=== PATIENT | female | born 1980 | race Hispanic/Latino ===

== ENCOUNTER 2016-09-21 17:44 | Emergency (ER) | payer OTHER ==
[~2016-09-21] VITALS: Ht 144.8 cm; Wt 68.0 kg
[~2016-09-21 17:44] MED LIST: ACYCLOVIR800 M1 PO; ANTIVERT 25MG #1 PAC PO; AURALGAN 14 ML14 ML AD; BENTYL 10 MG CA10 MG PO; CIPRO 500MG TA500 MG PO; CYCLOBENZAPRINE10 M1 PO; CYCLOBENZAPRINE10 M3 PR; EXCEDRIN MIGRAI1 TAB PO; FIORICET 50-301 EACH PO; MAXALT10 M1 PO; MEDROL DOSEPAK1 PAC PO; MEDROL4 M2 PO; MOTRIN800 MG PO; MULTI-DAY VITA1 EACH PO; OXYCODONE5 MG PO; PERCOCET 325 MG1 TA2 PO; PHENAZOPYRIDIN100 MG PO; PROMETHAZINE HC25 M3 PO; PYRIDIUM100 MG PO; REGLAN10 M1 PO; SOMA 350MG TAB350 MG PO; TIZANIDINE HCL2 M1 PO; TOPIRAMATE25 MG PO; TOPIRAMATE50 MG PO; VIMOVO 20 MG PO; ZITHROMAX Z-PA250 M1 PO; ZOFRAN 4 MG TABL4 MG PO; ZOFRAN ODT4 M1 PO; ZOFRAN ODT4 MG PO; ZOFRAN ODT4 MG SL; ZOFRAN4 M1 PO; ZOFRAN4 M2 PO
[2016-09-21 17:57] VITALS: BP 133/93
--- NOTE | 2016-09-21 18:28 | ED HEADACHE COMPLAINT ---
History of Present Illness General Chief Complaint: Headache Stated Complaint: WALL Source: patient Exam Limitations: no limitations Vital Signs & Intake/Output Vital Signs & Intake/Output Vital Signs Date Time Temp Pulse Resp B/P Pulse O2 O2 Flow FiO2 Ox Delivery Rate 09/21 1757 97.5 97 18 133/93 97 Room Air Allergies Coded Allergies: ketorolac (Mild, TOOTH PAIN 01/09/16) codeine (INSOMNIA, GI, HIVES, HEART ACCELERATES 01/09/16) ibuprofen (GI, HIVES, VOMIT 01/09/16) Triage Note: PT HERE FOR MIGRAINE AND RIGHT EAR PAIN. PT STATES THIS STARTED AT 0600. PT STATES SHE TOOK HER EXCEDRIN BUT IT DIDN'T WORK. Triage Nurses Notes Reviewed? yes Onset: Abrupt Duration: day(s): (1), constant, continues in ED Timing: recent history Quality/Severity: moderate, severe No Modifying Factors: none : No Patient currently breastfeeds: No HPI: 36-year-old female comes into emergency room for further evaluation of migraine headache that has been going on since this morning. Sharp. Throbbing. Continuous. Right-sided. Feels like previous migraines. Denies any vomiting but some associated nausea. Patient has been seen here many times for headaches in the past. Patient has an appointment with neurologist in October. (LESTER NEWSOME) Reconcile Medications Acetaminophen/Aspirin/Caffei (Excedrin Migraine 250 MG-250 MG-65 MG) 1 TAB TAB 2 TAB PO PRN MIGRAINES (Reported) Metoclopramide HCl (Reglan) 10 MG TABLET 1 TAB PO 4 TIMES/DAY nausea 30 minutes before meals and bedtime Multivitamin (Multi-Day Vitamins) 1 EACH TABLET 1 TAB PO DAILY SUPPLEMENT ( Reported) Oxycodone Hydrochloride (Oxycodone) 5 MG TAB 1 TAB PO TID PRN PAIN (Reported) (CASS ALEXANDER,YASMIN) Past History Travel History Traveled to [place] past 21 day No Medical History Any Pertinent Medical History? 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 No (LESTER NEWSOME) Review of Systems Review of Systems Constitutional: Reports: no symptoms. Eyes: Reports: no symptoms. Ears, Nose, Throat, Mouth: Reports: no symptoms. Respiratory: Reports: no symptoms. Cardiovascular: Reports: no symptoms. Gastrointestinal/Abdominal: Reports: no symptoms. Genitourinary: Reports: no symptoms. Musculoskeletal: Reports: no symptoms. Skin: Reports: no symptoms. Neurological/Psychological: Reports: see HPI. Hematologic/Endocrine: Reports: no symptoms. Endocrine: Reports: no symptoms. Immunologic/Allergic: Reports: no symptoms. All Other Systems: Reviewed and Negative (LESTER NEWSOME) Physical Exam Physical Exam General Appearance: well developed/nourished, no apparent distress, alert, awake Head: atraumatic, normal appearance Eyes: Bilateral: normal appearance, PERRL, EOMI. Ears, Nose, Throat: normal pharynx, normal ENT inspection, hearing grossly normal Neck: normal inspection, supple, full range of motion Respiratory: normal breath sounds, chest non-tender, no respiratory distress Cardiovascular: regular rate/rhythm Back: normal inspection Extremities: normal inspection, normal range of motion Psychiatric: awake, alert, oriented x 3 Cranial Nerves: normal hearing, normal speech, PERRL Coordination/Gait: normal gait Motor/Sensory: no motor/sensory deficits Skin: intact, normal color Core Measures Severe Sepsis Present: No Septic Shock Present: No (LESTER NEWSOME) Progress Differential Diagnosis: carotid dissection, cav sinus thromb, cluster WALL, encephalitis, IC mass/tumor, intracranial Hem., meningitis, migraine WALL, musculoskeletal pain, sinusitis, SSS thrombosis, subarach. Hem., tension WALL, temporal arteritis, TMJ syndrome, viral cephalgia Plan of Care: Current Medications Sig/Wei Start time Last Medication Dose Stop Time Status Admin Hydromorphone HCl 1 MG ONCE ONE 09/21 1844 UNVr (Dilaudid) 09/21 1845 Metoclopramide HCl 10 MG ONCE ONE 09/21 1844 UNVr (Reglan) 09/21 1845 Departure Departure Disposition: HOME OR SELF CARE Condition: Stable Clinical Impression Primary Impression: Migraine headache Referrals: David CAVAZOS MD (PCP/Family) Additional Instructions: Take Reglan as prescribed. Follow-up with neurologist as ready scheduled. Return if any other concerns worsening symptoms. Please go over all results of today's visit with your primary care doctor. Contact your primary care doctor to let them know you were here in the emergency room. There may be nonspecific findings which may not be related to your visit today here in the emergency room but may require further evaluation and chronic monitoring by your primary care doctor. If you had a laceration today the chance of foreign body always remains. You should follow-up with your primary care doctor for recheck in 3-5 days for a wound check. If you had an x-ray done there is a chance that a fracture could have been missed on initial read and you should follow-up with your primary care doctor for repeat x-rays if symptoms persist. If your blood pressure was elevated here in the emergency room please have rechecked by her primary care doctor within the next 48 hours by your primary care doctor. If you were prescribed a narcotic here in the emergency room or any type of controlled substances you're not allowed to drive while taking this medication or operate any type of heavy machinery. Narcotics can make you feel lightheaded dizziness nausea and can cause constipation. You may need to picker / packer a stool softener. Thank you for choosing [facility] emergency room. Please return to the emergency room immediately if you have any other concerns worsening of symptoms. Departure Forms: Customer Survey General Discharge Information Prescriptions: Current Visit Scripts Metoclopramide HCl (Reglan) 1 TAB PO 4 TIMES/DAY #15 TAB 30 minutes before meals and bedtime Comments 09/21/2016 6:57:52 PM Patient told that she cannot get IV narcotics. Patient will get one-time dose of pain medication. Headache is consistent with previous headaches. No suspicion for subarachnoid hemorrhage. Afebrile. Nontoxic-appearing. No nuchal rigidity. No suspicion for meningitis. (LESTER NEWSOME) PA/PHOTOGRAPHIC SPECIALIST Co-Sign Statement Statement: ED Attending supervision documentation- [] I saw and evaluated the patient. I have also reviewed all the pertinent lab results and diagnostic results. I agree with the findings and the plan of care as documented in the PA's/PHOTOGRAPHIC SPECIALIST's documentation. x I have reviewed the ED Record and agree with the PA's/PHOTOGRAPHIC SPECIALIST's documentation. [] Additions or exceptions (if any) to the PAs/PHOTOGRAPHIC SPECIALIST's note and plan are summarized below: [] (CASS ALEXANDER,YASMIN)
[2016-09-21] MEDS ORDERED: REGLAN10 M1 PO (18:42)
== END 2016-09-21 18:53 ==
LOC: ERH 17:44
DX: G43.909 Migraine, unspecified, not intractable, without status migrainosus (principal)
CPT/HCPCS: 96372

== ENCOUNTER 2016-11-20 15:12 | Emergency (ER) | payer OTHER ==
[~2016-11-20] VITALS: Ht 144.8 cm; Wt 63.5 kg
--- NOTE | 2016-11-20 15:58 | ED GENERAL ADULT ---
History of Present Illness General Chief Complaint: General Adult Stated Complaint: PT HAS A MIRGRAINE,EAR ACHE Source: patient Exam Limitations: no limitations Vital Signs & Intake/Output Vital Signs & Intake/Output Vital Signs Date Time Temp Pulse Resp B/P Pulse O2 O2 Flow FiO2 Ox Delivery Rate 11/20 1729 96.5 78 18 159/93 99 Room Air 11/20 1542 100 Room Air 11/20 1520 96.9 83 16 148/106 97 Room Air Allergies Coded Allergies: ketorolac (Mild, TOOTH PAIN 11/20/16) codeine (INSOMNIA, GI, HIVES, HEART ACCELERATES 11/20/16) ibuprofen (GI, HIVES, VOMIT 11/20/16) Triage Note: PT STATES SHE HAS AN EAR ACHE RIGHT SIDE AND A MIGRAINE. PT REPORTS THIS ALL STARTED AT 0300. Triage Nurses Notes Reviewed? yes Onset: Gradual Duration: day(s): (1) Timing: recent history Injury Environment: home Severity: moderate Severity Numbers: 8 Modifying Factors: Worsens With: other (LIGHTS). : No Patient currently breastfeeds: No HPI: Patient is a 36-year-old female who's had history of chronic migraines associated with right ear pain presenting to the emergency department with chief complaint of flareup of this pain. She's been dealing with this for "a while". Has been taking Tylenol at home without relief. She was seen here recently for the same symptoms and was given nausea medication. She reports that she cannot keep it down. She has an appointment with a specialist but has not seen them yet. Positive nausea but no vomiting. Denies abdominal pain. No visual changes. Positive light sensitivity. No fevers or chills. Feels typical of her migraine. Headache started gradually (COCO MONROY) Reconcile Medications Multivitamin (Multi-Day Vitamins) 1 EACH TABLET 1 TAB PO DAILY SUPPLEMENT ( Reported) Prochlorperazine Maleate (Compazine) 10 MG TABLET 1 TAB PO Q8HR PRN NAUSEA Propranolol HCl (Propranolol HCl ER) 160 MG CAP.SA.24H 1 CAP PO DAILY MIGRAINES (Reported) (SUSANNAH LANDEROS DO) Past History Travel History Traveled to [place] past 21 day No Medical History Any Pertinent Medical History? 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 No (COCO MONROY) Review of Systems Review of Systems Constitutional: Reports: no symptoms. Comments Review of systems: See HPI, All other systems negative. Constitutional, no chills fever or weight loss HEENT: No visual changes no sore throat no congestion Cardiovascular: No chest pain ,palpitation , orthopnea or ankle swelling Skin, no jaundice no rashes Respiratory: No dyspnea cough sputum or hemoptysis GI: no vomiting : No dysuria No hematuria Muscle skeletal: no back pain, no neck pain, Neurologic: No numbness no confusion Psych: No stress anxiety or depression,. Heme/endocrine: No bruising no bleeding no polyuria or polydipsia Immunology: No splenectomy or history of AIDS (COCO MONROY) Physical Exam Physical Exam General Appearance: well developed/nourished, no apparent distress, alert, awake , WEARING SUNGLASSES Comments: Well-developed well-nourished person in no acute distress, wearing sunglasses HEENT: Normal EENT exam, extraocular motion intact, no nystagmus. Pupils equally round and reactive to light and accommodation. Nose is atraumatic. External auditory canal and Tympanic membranes clear. Pharynx normal. No swelling or edema. Tender to palpation over the right parietal bone. Neck: Supple, no lymphadenopathy, normal range of motion without pain or tenderness. No meningeal signs. Back: Nontender Cardiovascular: Regular rate and rhythms no murmurs rubs or gallops, normal JVP Respiratory: Chest nontender. No respiratory distress.breath sounds clear to auscultation bilaterally Extremity: No edema Neuro: Alert oriented x3, motor sensory normal, cranial nerves II through XII grossly intact. Skin: No appreciable rash on exposed skin, skin is warm and dry. Psych: Mood and affect is normal, memory and judgment is normal. Core Measures ACS in differential dx? No CVA/TIA Diagnosis: No Severe Sepsis Present: No Septic Shock Present: No (COCO MONROY) Progress Differential Diagnoses I considered the following diagnoses in my evaluation of the patient: Migraine headache, otitis media, otitis externa, sinusitis, medication seeking Plan of Care: Current Medications Sig/Wei Start time Last Medication Dose Stop Time Status Admin Hydromorphone HCl 2 MG ONCE ONE 11/20 1744 UNVr (Dilaudid) 11/20 1745 Metoclopramide HCl 10 MG ONCE ONE 11/20 1744 UNVr (Reglan) 11/20 1745 Patient medicated with ODT Zofran, by mouth oxycodone for symptoms. We do not treat chronic issues with IV or IM medications in this emergency department. Patient tolerating by mouth without vomiting. (COCO MONROY) Initial ED EKG: none Comments: Patient given by mouth ODT Zofran and oxycodone initially on arrival. And reevaluation patient reporting no improvement. Patient then given oral Reglan and oral Dilaudid. Patient reporting that the only thing that helps her is IM Dilaudid with Benadryl. Physics line to this patient that we cannot give IM or IV narcotic medications to help with chronic pain. Patient reporting that she would like to be discharged home, requesting refill for her antinausea medication. Patient educated on increasing fluids and following up specials. Patient nontoxic. VitalS stable. (COCO MONROY) Departure Departure Time of Disposition: 1810 Disposition: HOME OR SELF CARE Condition: Stable Clinical Impression Primary Impression: Migraine Qualifiers: Migraine type: unspecified Status migrainosus presence: without status migrainosus Intractability: not intractable Qualified Code: G43.909 - Migraine, unspecified, not intractable, without status migrainosus Secondary Impressions: Otalgia Qualifiers: Laterality: right Qualified Code: H92.01 - Otalgia, right ear Referrals: MACY ALEXANDER,MBrenna ALLEN (PCP/Family) Additional Instructions: Follow-up with your primary care physician as well as with YOUR specialist. Take Compazine as prescribed for nausea. Increase fluids. Return for worsening symptoms or concerns. Departure Forms: Customer Survey General Discharge Information Prescriptions: Current Visit Scripts Prochlorperazine Maleate (Compazine) 1 TAB PO Q8HR PRN NAUSEA #10 TAB (COCO MONROY) PA/SCOOP MACHINE OPERATOR Co-Sign Statement Statement: ED Attending supervision documentation- [] I saw and evaluated the patient. I have also reviewed all the pertinent lab results and diagnostic results. I agree with the findings and the plan of care as documented in the PA's/SCOOP MACHINE OPERATOR's documentation. [x] I have reviewed the ED Record and agree with the PA's/SCOOP MACHINE OPERATOR's documentation. [] Additions or exceptions (if any) to the PAs/SCOOP MACHINE OPERATOR's note and plan are summarized below: [] (SUSANNAH LANDEROS DO) Critical Care Note Critical Care Note Critical Care Time: non-applicable (COCO MONROY)
[2016-11-20] MEDS ORDERED: PROPRANOLOL HC160 M1 PO (16:47)
[2016-11-20 17:29] VITALS: BP 159/93
[2016-11-20] MEDS ORDERED: COMPAZINE10 M1 PO (18:12)
== END 2016-11-20 18:44 ==
LOC: ERH 15:12
DX: G43.909 Migraine, unspecified, not intractable, without status migrainosus (principal); H92.01 Otalgia, right ear
CPT/HCPCS: J3101

== ENCOUNTER 2017-11-17 17:17 | Emergency (ER) | payer OTHER ==
[~2017-11-17] VITALS: Ht 144.8 cm; Wt 74.4 kg
[~2017-11-17 17:17] MED LIST changes: +COMPAZINE10 M1 PO; +DIFLUCAN150 M1 PO; +ESGIC 50-325-41 EACH PO; +PERCOCET 5-3251 EACH PO; +PROPRANOLOL HC160 M1 PO; +VITAMIN D250000 UNIT PO
[2017-11-17 18:32] LABS: ABSOLUTE BASOPHIL COUNT 0 /CUMM (0.0-0.2); ABSOLUTE EOSINOPHIL COUNT 0.1 /CUMM (0.0-0.7); ABSOLUTE GRANULOCYTE CT 5.4 /CUMM (1.4-6.5); ABSOLUTE LYMPH COUNT 3.2 /CUMM (1.2-3.4); ABSOLUTE MONOCYTE COUNT 0.4 /CUMM (0.10-0.60); BASOPHIL % 0.4 % (0.0-2.0); EOSINOPHIL % 1.3 % (0-5); GRANULOCYTE % 58.8 % (42.2-75.2); HEMATOCRIT 40.8 % (37-47); MEAN CORPUSCULAR HGB 30.2 PG (27.0-31.0); MEAN CORPUSCULAR HGB CONC 33.2 G/DL (33.0-37.0); PLATELET COUNT 366 /CUMM (130-400); RBC DISTRIBUTION WIDTH 12.3 % (11.5-14.5); RED BLOOD CELL CT 4.48 /CUMM (4.20-5.40); WHITE BLOOD CELL COUNT 9.2 /CUMM (4.8-10.8)
--- NOTE | 2017-11-17 19:38 | ED INFLUENZA/URI COMPLAINT ---
History of Present Illness General Chief Complaint: General Adult Stated Complaint: BODY ACHES AND SWOLLEN LYMPH NODES IN GROIN PER PT Source: patient Exam Limitations: no limitations Vital Signs & Intake/Output Vital Signs & Intake/Output Vital Signs Date Time Temp Pulse Resp B/P B/P Pulse O2 O2 Flow FiO2 Mean Ox Delivery Rate 11/17 1722 97.7 106 18 158/95 95 Room Air Allergies Coded Allergies: ketorolac (Mild, TOOTH PAIN 11/20/16) codeine (INSOMNIA, GI, HIVES, HEART ACCELERATES 11/20/16) ibuprofen (GI, HIVES, VOMIT 11/20/16) Reconcile Medications Butalb/Acetaminophen/Caffeine (Esgic 50-325-40 MG Tablet) 50 MG-325 MG-40 MG TABLET 1 TAB PO TID HEADACHES Ergocalciferol (Vitamin D2) (Vitamin D2) 50,000 UNIT CAPSULE 1 CAP PO QW VITAMIN SUPPORT (Reported) Fluconazole (Diflucan) 150 MG TABLET 1 TAB PO ONCE YEAST INFECTION Triage Note: PT COMPLAINS OF FLU LIKE SYMPTOMS SINCE THURSDAY JOINT PAIN, SWOLLEN LYMP NODES STATES THAT SHE IS BEING TREATED FOR EAR INFECTIONS AT THIS TIME Triage Nurses Notes Reviewed? yes : No Patient currently breastfeeds: No HPI: Patient presents for evaluation of diffuse body aches, left groin pain, fever, nonproductive cough, nasal congestion, nausea without vomiting, diarrhea ( nonbloody) after being evaluated by her primary care physician on who initiated amoxicillin therapy for in ear infection. Patient denies any associated rashes, dyspnea, recent travel, ill contacts or vomiting. Patient symptoms are described as more or less constant, fluctuating in intensity and nothing seems to improve symptoms including Tylenol the amoxicillin and a nasal decongestant spray. Patient feels that her body aches are severe and interfering with her ability to perform usual activities. Past History Travel History Traveled to [place] past 21 day No Medical History Any Pertinent Medical History? 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 No Review of Systems Review of Systems Constitutional: Reports: see HPI. EENTM: Reports: see HPI. Respiratory: Reports: see HPI. Cardiovascular: Reports: no symptoms. GI: Reports: see HPI. Genitourinary: Reports: no symptoms. Musculoskeletal: Reports: see HPI. Skin: Reports: no symptoms. Neurological/Psychological: Reports: no symptoms. Hematologic/Endocrine: Reports: no symptoms. Immunologic/Allergic: Reports: no symptoms. All Other Systems: Reviewed and Negative Physical Exam Physical Exam Ears, Nose, Throat: SEE BELOW Comments: Gen.: Well-nourished, well-developed, no acute respiratory distress. Appears mildly uncomfortable but nontoxic. Head: Normocephalic, atraumatic. Face: Mild tenderness over the frontal and maxillary sinuses Eyes: Normal inspection bilaterally Ears: Normal inspection bilaterally Nose: Normal inspection Throat/mouth : Moist mucosa , no oropharyngeal erythema exudates or soft tissue swelling, uvula midline Neck: Supple, full range of motion, no goiter Heart: Regular rate and rhythm, no murmurs rubs or gallops Lungs: Clear to auscultation bilaterally with normal air entry Chest: Nontender Back: Normal range of motion Abdomen: Soft, right lower quadrant abdominal tenderness with rebound "pressure ", nondistended, normal bowel sounds Extremities: Normal range of motion grossly, equal radial pulses, no cyanosis clubbing or edema, no joint swelling or erythema Neurologic: Cranial nerves grossly intact, speech is clear Skin: warm and dry, no rashes Psychiatric: Calm, cooperative, no apparent delusions or hallucinations Lymphatic: No cervical lymphadenopathy Core Measures Sepsis Present: No Sepsis Focused Exam Completed? No Progress Differential Diagnosis: see notes Plan of Care: Orders Procedure Date/time Status Add-on Test (ER Only) 11/17 181 Active TROPONIN LEVEL 11/17 181 Complete HUMAN BETA HCG SCREEN 11/17 180 Complete C-REACTIVE PROTEIN 11/17 180 Complete COMPREHENSIVE METABOLIC PANEL 11/17 180 Complete CBC WITHOUT DIFFERENTIAL 11/17 180 Complete EKG 11/17 180 Active RAPID VIRAL INFLUENZA A 11/17 1724 Complete Laboratory Tests 11/17/17 1810: Anion Gap 11, Estimated GFR > 60, BUN/Creatinine Ratio 16.3, Glucose 90, Calcium 9.4, Total Bilirubin 0.5, AST 23, ALT 39, Alkaline Phosphatase 121, Troponin I < 0.01, C-Reactive Prot, Quant < 0.5, Total Protein 7.4, Albumin 4.4, Globulin 3.0 , Albumin/Globulin Ratio 1.5, Total Beta HCG NEGATIVE, CBC w Diff NO MAN DIFF REQ, RBC 4.48, MCV 91.0, MCH 30.2, MCHC 33.2, RDW 12.3, MPV 7.0 L, Gran % 58.8, Lymphocytes % 34.8, Monocytes % 4.7, Eosinophils % 1.3, Basophils % 0.4, Absolute Granulocytes 5.4, Absolute Lymphocytes 3.2, Absolute Monocytes 0.4, Absolute Eosinophils 0.1, Absolute Basophils 0 Microbiology 11/17 172 NASOPHARYN: Influenza Virus A & B Rapid Smear - COMP Diagnostic Imaging: Discussed w/RAD: CT Scan. Radiology Impression: PATIENT: VALE SLOAN PRESENT AGE: 37 PATIENT ACCOUNT NO: [id number] : 80 LOCATION: [facility] ORDERING PHYSICIAN: Jimmie Brennan MD SERVICE DATE: 11/17/17 EXAM TYPE: CAT - CT ABD & PELVIS W IV CONTRAST EXAMINATION: CT ABDOMEN AND PELVIS WITH CONTRAST CLINICAL INFORMATION: Right lower quadrant pain COMPARISON: 09/18/2015. TECHNIQUE: Multidetector volumetric imaging was performed of the abdomen and pelvis following IV administration of 80 mL of Omnipaque 300 intravenous contrast. Sagittal and coronal reformatted images were obtained on the technologist's workstation. FINDINGS: Minimal bibasilar opacities. Upper abdomen Area of low density in the right lobe superiorly adjacent to the diaphragm. Cannot be said to be simple cysts. Measures 1.5 cm. Appears similar to previous from 2016. The spleen is within normal limits. Region of the pancreas is unchanged. Area the adrenal glands radius. No suspicious finding. Patient is status post cholecystectomy. Mild prominence of the common duct. The bowel pattern is nonobstructing. There is mild mesenteric adenopathy here. Similar to previous. The aorta is normal in caliber. The kidneys are in the early nephrographic phase. CT pelvis. Surgical clips around the cecum. The appendix is felt to be normal. No bulky adenopathy. IMPRESSION: No acute finding here. The bowel pattern is within normal limits. The appendix is felt to be within normal limits. There are some surgical clips adjacent to the cecum but these are also seen previously. Once again there is a low-density lesion in the dome of the liver also seen previously. DICTATED BY: Jimmie Tavera MD DATE/TIME DICTATED: 11/17/172153 SCOURING MACHINE TENDER:EMMETT DATE/TIME TRANSCRIBED:11/17/172153 CONFIDENTIAL, DO NOT COPY WITHOUT APPROPRIATE AUTHORIZATION. <Electronically signed in Other Vendor System> SIGNED BY: Jimmie Tavera MD 11/17/172218 CXR Impression: PATIENT: VALE SLOAN PRESENT AGE: 37 PATIENT ACCOUNT NO: [id number] : 80 LOCATION: [facility] ORDERING PHYSICIAN: Luis Manuel QUINTANILLA SERVICE DATE: 11/17/17 EXAM TYPE: RAD - XRY-CHEST XRAY, TWO VIEWS EXAMINATION: XR CHEST CLINICAL INFORMATION: 37-year-old female patient with cough and fever. COMPARISON: Chest x-ray 08/18/2017. (Normal). TECHNIQUE: 2 views of the chest were obtained. FINDINGS: No significant abnormality is noted involving the heart, lungs, mediastinum, bony thorax or soft tissues. The patient's gallbladder has been surgically removed. IMPRESSION: Unremarkable examination. DICTATED BY: Dago Santo MD DATE/TIME DICTATED: 11/17/172030 SCOURING MACHINE TENDER:EMMETT DATE/TIME TRANSCRIBED:11/17/172030 CONFIDENTIAL, DO NOT COPY WITHOUT APPROPRIATE AUTHORIZATION. <Electronically signed in Other Vendor System> SIGNED BY: Dago Santo MD 11/17/172034 Initial ED EKG: NSR, rate (82) Prior EKG: unchanged Comments: 11/17/2017 10:31:37 PM I have updated vale on her test results. Unfortunately extremes of the only medication she can take at this time would be Tylenol given her list of allergies. We have discussed the possibility of a flare of arthritis given her past medical history or a viral syndrome. Departure Departure Disposition: HOME OR SELF CARE Condition: Stable Clinical Impression Primary Impression: Arthralgia Qualifiers: Joint pain location: unspecified Qualified Code: M25.50 - Pain in unspecified joint Referrals: Aleida Shin MD (PCP/Family) Departure Forms: Customer Survey General Discharge Information
--- NOTE | 2017-11-17 20:35 | RADIOLOGY REPORT ---
EXAMINATION: XR CHEST CLINICAL INFORMATION: 37-year-old female patient with cough and fever. COMPARISON: Chest x-ray 08/18/2017. (Normal). TECHNIQUE: 2 views of the chest were obtained. FINDINGS: No significant abnormality is noted involving the heart, lungs, mediastinum, bony thorax or soft tissues. The patient's gallbladder has been surgically removed. IMPRESSION: Unremarkable examination.
--- NOTE | 2017-11-17 22:19 | CT SCAN REPORT ---
EXAMINATION: CT ABDOMEN AND PELVIS WITH CONTRAST CLINICAL INFORMATION: Right lower quadrant pain COMPARISON: 09/18/2015. TECHNIQUE: Multidetector volumetric imaging was performed of the abdomen and pelvis following IV administration of 80 mL of Omnipaque 300 intravenous contrast. Sagittal and coronal reformatted images were obtained on the technologist's workstation. FINDINGS: Minimal bibasilar opacities. Upper abdomen Area of low density in the right lobe superiorly adjacent to the diaphragm. Cannot be said to be simple cysts. Measures 1.5 cm. Appears similar to previous from 2016. The spleen is within normal limits. Region of the pancreas is unchanged. Area the adrenal glands radius. No suspicious finding. Patient is status post cholecystectomy. Mild prominence of the common duct. The bowel pattern is nonobstructing. There is mild mesenteric adenopathy here. Similar to previous. The aorta is normal in caliber. The kidneys are in the early nephrographic phase. CT pelvis. Surgical clips around the cecum. The appendix is felt to be normal. No bulky adenopathy. IMPRESSION: No acute finding here. The bowel pattern is within normal limits. The appendix is felt to be within normal limits. There are some surgical clips adjacent to the cecum but these are also seen previously. Once again there is a low-density lesion in the dome of the liver also seen previously.
[2017-11-17 22:36] VITALS: BP 145/92
== END 2017-11-17 22:39 ==
LOC: ERH 17:17
PROVIDERS: Physician Assistant Medical
DX: M19.90 Unspecified osteoarthritis, unspecified site (principal)
CPT/HCPCS: 71046; 74177; 87804; 87804-59; 93005; 93010; 96361; 96372; 96374; J3101

== ENCOUNTER 2018-03-02 15:35 | Emergency (ER) | payer OTHER ==
[~2018-03-02] VITALS: Ht 149.9 cm; Wt 76.2 kg
[~2018-03-02 15:35] MED LIST changes: +BACTRIM DS TAB1 EACH PO; +BUPROPION XL300 M1 PO; +CLONAZEPAM1 M2 PO; +SEROQUEL XR150 M1 PO; +SEROQUEL XR200 M1 PO; +SERTRALINE HCL100 MG PO; +ULTRAM50 M1 PO
[2018-03-02 16:06] LABS: ABSOLUTE BASOPHIL COUNT 0 /CUMM (0.0-0.2); ABSOLUTE EOSINOPHIL COUNT 0.1 /CUMM (0.0-0.7); ABSOLUTE LYMPH COUNT 2.4 /CUMM (1.2-3.4); ABSOLUTE MONOCYTE COUNT 0.4 /CUMM (0.10-0.60); BASOPHIL % 0.7 % (0.0-2.0); EOSINOPHIL % 1.2 % (0-5); GRANULOCYTE % 58.1 % (42.2-75.2); HEMATOCRIT 36.3 % (37-47); MEAN CORPUSCULAR HGB 30.4 PG (27.0-31.0); MEAN CORPUSCULAR VOLUME 89.2 FL (81.0-99.0); MEAN PLATELET VOLUME 6.7 FL (7.4-10.4); PLATELET COUNT 289 /CUMM (130-400); RBC DISTRIBUTION WIDTH 13.2 % (11.5-14.5); RED BLOOD CELL CT 4.07 /CUMM (4.20-5.40); WHITE BLOOD CELL COUNT 6.9 /CUMM (4.8-10.8)
--- NOTE | 2018-03-02 18:18 | ED GENERAL ADULT ---
See Addendum History of Present Illness General Chief Complaint: General Adult Stated Complaint: SENT BY MD FOR POSS ADMISSION FOR PNA Source: patient, family, old records Exam Limitations: no limitations Vital Signs & Intake/Output Vital Signs & Intake/Output Vital Signs Date Time Temp Pulse Resp B/P B/P Pulse O2 O2 Flow FiO2 Mean Ox Delivery Rate 03/02 1958 97.9 86 18 113/79 93 Room Air 03/02 1733 Room Air 03/02 1541 98.5 107 18 133/82 96 Room Air Room Air Allergies Coded Allergies: ketorolac (Mild, TOOTH PAIN 11/20/16) codeine (INSOMNIA, GI, HIVES, HEART ACCELERATES 11/20/16) ibuprofen (GI, HIVES, VOMIT 11/20/16) Triage Note: PT TO ED WITH C/O COUGH, SOB, SINCE THURSDAY. WENT TO WALK IN YESTERDAY HAD XRAY, DX WITH PNEUMONIA, GIVEN ANTIBIOTICS, NO BETTER TODAY, HERE "FOR POSSIBLE ADMISSION FOR PNEUMONIA AND DEHYDRATION". 96% ON ROOM AIR. Triage Nurses Notes Reviewed? yes Duration: day(s):, constant, continues in ED Timing: recent history Injury Environment: home Severity: moderate, severe No Modifying Factors: none Associated Symptoms: cough LMP (ages 10-50): unknown : No Patient currently breastfeeds: No HPI: 4 days prior to admission patient complains of productive cough causing migraine to become worse with nausea vomiting diarrhea chills anorexia joint pains and aches. 1 day prior to admission she was seen at a walk-in center diagnosed with pneumonia prescribed doxycycline cough syrup and inhaler. She was referred for evaluation of dehydration and continued symptoms. She denies chest pain abdominal pain dysuria rash bleeding. (New ALEXANDER,Omar) Reconcile Medications Bupropion HCl (Bupropion XL) 300 MG TAB.ER.24H 1 TAB PO QAM MENTAL HEALTH ( Reported) Butalb/Acetaminophen/Caffeine (Esgic 50-325-40 MG Tablet) 50 MG-325 MG-40 MG TABLET 1 TAB PO TID HEADACHES Clonazepam 1 MG TABLET 1 TAB PO TIDPRN MENTAL HEALTH (Reported) Ergocalciferol (Vitamin D2) (Vitamin D2) 50,000 UNIT CAPSULE 1 CAP PO QW VITAMIN SUPPORT (Reported) Fluconazole (Diflucan) 150 MG TABLET 1 TAB PO ONCE YEAST INFECTION Guaifenesin/Dextromethorphan (Robitussin Cough-Chest Dm Liq) 100 MG-5 MG/5 ML LIQUID 5-10 ML PO Q6P PRN COUGH Quetiapine Fumarate (Seroquel XR) 200 MG TAB.ER.24H 1 TAB PO QPM MENTAL HEALTH (Reported) Quetiapine Fumarate (Seroquel XR) 150 MG TAB.ER.24H 1 TAB PO QPM MENTAL HEALTH (Reported) Sertraline HCl 100 MG TABLET 1 TAB PO DAILY DEPRESSION (Reported) Sulfamethoxazole/Trimethoprim (Bactrim Ds Tablet) 800 MG-160 MG TABLET 1 TAB PO BID abscess Tramadol HCl (Ultram) 50 MG TABLET 1 TAB PO Q6P PRN PAIN (Anu ALEXANDER,Jimmie Villa) Past History Travel History Traveled to [place] past 21 day No Medical History Any Pertinent Medical History? 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 No (Omar Wolff MD) Review of Systems Review of Systems Constitutional: Reports: see HPI, chills, malaise. EENTM: Reports: no symptoms. Respiratory: Reports: see HPI, cough, short of breath, sputum production. Cardiovascular: Reports: no symptoms. GI: Reports: see HPI, diarrhea, nausea, vomiting. Genitourinary: Reports: no symptoms. Musculoskeletal: Reports: no symptoms. Skin: Reports: no symptoms. Neurological/Psychological: Reports: see HPI, headache. Hematologic/Endocrine: Reports: no symptoms. Immunologic/Allergic: Reports: no symptoms. All Other Systems: Reviewed and Negative (Omar Wolff MD) Physical Exam Physical Exam General Appearance: well developed/nourished, alert, awake, anxious, moderate distress Head: atraumatic, normal appearance Eyes: Bilateral: normal appearance, PERRL, EOMI. Ears, Nose, Throat: dry mucous Membranes Neck: normal inspection, supple, full range of motion, no midline tenderness Respiratory: chest non-tender, no respiratory distress, decreased breath sounds, crackles Cardiovascular: regular rate/rhythm, normal peripheral pulses, norml femoral pulses equa Peripheral Pulses: 4+ carotid (R), 4+ carotid (L) Gastrointestinal: normal bowel sounds, soft, non-tender, no organomegaly Back: normal inspection, normal range of motion, no vertebral tenderness Extremities: normal inspection, normal capillary refill, normal range of motion, no edema Neurologic/Psych: no motor/sensory deficits, awake, alert, oriented x 3, normal gait, normal mood/affect, 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 Skin: intact, normal color, warm/dry Lymphatic: no anterior cervical tamara Core Measures ACS in differential dx? No CVA/TIA Diagnosis: No Sepsis Present: No Sepsis Focused Exam Completed? No (New ALEXANDER,Omar) Progress Differential Diagnoses I considered the following diagnoses in my evaluation of the patient: Pneumonia gastroenteritis dehydration Plan of Care: Orders Procedure Date/time Status TROPONIN LEVEL 03/02 2018 Complete EKG 03/02 2018 Active LACTIC ACID 03/02 154 Complete COMPREHENSIVE METABOLIC PANEL 03/02 154 Complete CBC WITHOUT DIFFERENTIAL 03/02 1542 Complete EKG 03/02 154 Active Current Medications Sig/Wei Start time Last Medication Dose Stop Time Status Admin Guaifenesin/ 10 ML ONCE ONE 03/02 2130 UNVr 03/02 Dextromethorphan 03/02 2131 2126 (Robitussin Dm) Laboratory Tests 03/02/18 202: Troponin I < 0.01 03/02/18 1842: Lactic Acid Cancelled 03/02/18 1554: Anion Gap 10, Estimated GFR > 60, BUN/Creatinine Ratio 15.0, Glucose 91, Lactic Acid 1.2, Calcium 8.9, Total Bilirubin 0.4, AST 25, ALT 47, Alkaline Phosphatase 160 H, Total Protein 6.9, Albumin 4.0, Globulin 2.9, Albumin/Globulin Ratio 1.4 , CBC w Diff NO MAN DIFF REQ, RBC 4.07 L, MCV 89.2, MCH 30.4, MCHC 34.0, RDW 13.2, MPV 6.7 L, Gran % 58.1, Lymphocytes % 34.5, Monocytes % 5.5, Eosinophils % 1.2, Basophils % 0.7, Absolute Granulocytes 4.0, Absolute Lymphocytes 2.4, Absolute Monocytes 0.4, Absolute Eosinophils 0.1, Absolute Basophils 0 Diagnostic Imaging: Viewed by Me: Radiology Read. Discussed w/RAD: Radiology Read. Initial ED EKG: none Hand-Off Endorsed To: Jimmie Brennan MD Endorsed Time: 1899 Pending: other (clinical improvement), Xray (Omar Wolff MD) Comments: 03/02/2018 8:39:35 PM VALE is feeling much better. Given patient's complaint of chest pain a repeat EKG was obtained (unchanged). Repeat troponin pending. (Jimmie Brennan MD) Departure Departure Condition: Stable Referrals: Aleida Shin MD (PCP/Family) Departure Forms: Customer Survey General Discharge Information (Omar Wolff MD) Departure Disposition: HOME OR SELF CARE Clinical Impression Primary Impression: Pneumonia Qualifiers: Pneumonia type: due to unspecified organism Laterality: right Lung location: upper lobe of lung Qualified Code: J18.1 - Lobar pneumonia, unspecified organism Secondary Impressions: Dehydration Migraine headache Qualifiers: Migraine type: unspecified Status migrainosus presence: with status migrainosus Intractability: not intractable Qualified Code: G43.901 - Migraine, unspecified, not intractable, with status migrainosus Nausea vomiting and diarrhea Additional Instructions: Cough medication as prescribed. Continue your current antibiotic. Follow-up with your primary care physician for reevaluation on . Return if any concerns or sudden worsening. Please note that there might be incidental findings in your evaluation that are unrelated to the current emergency department visit. Please notify your primary care doctor about this emergency department visit in order to obtain and review all of the testing performed so that these incidental findings can be monitored as needed. If you had an x-ray performed, please understand that some fractures or other findings may not be seen on the initial set of x-rays. If your symptoms persist you might need a repeat set of x-rays to check for such a fracture. If you had a laceration evaluated, please understand that foreign bodies such as glass or wood may not be visible to the naked eye or on plain x-rays. If the wound becomes red, swollen, increasingly more painful or if there is any drainage from the wound, please have it reevaluated by a physician for the possibility of a retained foreign body. If you're unable to follow up as outlined in the discharge instructions please return to the emergency department. Thank you for choosing the [facility] Emergency Department for your care. It was a pleasure to serve you today. Jimmie Brennan M.D. [facility] Prescriptions: Current Visit Scripts Guaifenesin/Dextromethorphan (Robitussin Cough-Chest Dm Liq) 5-10 ML PO Q6P PRN COUGH #200 ML (Anu ALEXANDER,Jimmie Villa) Critical Care Note Critical Care Note Critical Care Time: non-applicable (New ALEXANDER,Omar)
--- NOTE | 2018-03-02 19:16 | RADIOLOGY REPORT ---
EXAMINATION: XR CHEST CLINICAL INFORMATION: Cough and rales. COMPARISON: Chest x-ray from 11/17/2017. TECHNIQUE: 2 views of the chest were obtained. FINDINGS: There is patchy airspace consolidation peribronchial thickening in the right upper lobe and also suspected to lesser degree in the right middle lobe. Aside from a small linear density laterally and inferiorly in the left lower lung, the left lung is relatively clear. The cardiomediastinal silhouette is unchanged. No pleural effusions are seen. No acute osseous abnormality is visible. IMPRESSION: Peribronchial thickening and patchy airspace disease in the right lung, primarily in the right upper lobe which is most suspicious for pneumonia. Recommend imaging follow-up to resolution.
[2018-03-02 19:58] VITALS: BP 113/79
[2018-03-02] MEDS ORDERED: ROBITUSSIN COU237 M1 PO (21:27)
[2018-03-03] MEDS ORDERED: MEDROL4 M2 PO (20:44)
== END 2018-03-02 21:32 ==
LOC: ERH 15:35
PROVIDERS: Physician Assistant Medical
DX: J18.9 Pneumonia, unspecified organism (principal); E86.0 Dehydration; G43.909 Migraine, unspecified, not intractable, without status migrainosus; R11.2 Nausea with vomiting, unspecified; R19.7 Diarrhea, unspecified; R07.9 Chest pain, unspecified; F17.210 Nicotine dependence, cigarettes, uncomplicated
CPT/HCPCS: 71046; 93005; 93010; 96361; 96374; 96375; J0131; J2765

== ENCOUNTER 2018-03-03 18:18 | Inpatient (IN) | payer OTHER ==
[~2018-03-03] VITALS: Ht 149.9 cm; Wt 73.6 kg
[~2018-03-03 18:18] MED LIST changes: +ROBITUSSIN COU237 M1 PO
[2018-03-03 18:40] LABS: ABSOLUTE BASOPHIL COUNT 0 /CUMM (0.0-0.2); ABSOLUTE EOSINOPHIL COUNT 0 /CUMM (0.0-0.7); ABSOLUTE GRANULOCYTE CT 4.7 /CUMM (1.4-6.5); ABSOLUTE LYMPH COUNT 1.1 /CUMM (1.2-3.4); ABSOLUTE MONOCYTE COUNT 0.3 /CUMM (0.10-0.60); BASOPHIL % 0.3 % (0.0-2.0); EOSINOPHIL % 0.4 % (0-5); GRANULOCYTE % 76.8 % (42.2-75.2); HEMATOCRIT 35.2 % (37-47); MEAN CORPUSCULAR HGB 30.7 PG (27.0-31.0); MEAN CORPUSCULAR HGB CONC 34.4 G/DL (33.0-37.0); MEAN PLATELET VOLUME 6.5 FL (7.4-10.4); PLATELET COUNT 291 /CUMM (130-400); RBC DISTRIBUTION WIDTH 12.8 % (11.5-14.5); RED BLOOD CELL CT 3.95 /CUMM (4.20-5.40); WHITE BLOOD CELL COUNT 6.1 /CUMM (4.8-10.8)
--- NOTE | 2018-03-03 18:47 | ED GENERAL ADULT ---
History of Present Illness General Chief Complaint: General Adult Stated Complaint: PNA/FEVER/WEAKNESS Source: patient Exam Limitations: no limitations Vital Signs & Intake/Output Vital Signs & Intake/Output Vital Signs Date Time Temp Pulse Resp B/P B/P Pulse O2 O2 Flow FiO2 Mean Ox Delivery Rate 03/03 2237 88 Room Air 03/03 2236 96 Nasal 2.0L Cannula 03/03 2104 102.0 118 94 Room Air 03/03 2041 101.5 107 20 171/83 94 Room Air 03/03 1952 103.2 03/03 1917 Room Air 03/03 1916 95 03/03 182 103.2 120 18 129/97 94 Room Air Allergies Coded Allergies: ketorolac (Mild, TOOTH PAIN 11/20/16) codeine (INSOMNIA, GI, HIVES, HEART ACCELERATES 11/20/16) ibuprofen (GI, HIVES, VOMIT 11/20/16) Reconcile Medications Bupropion HCl (Bupropion XL) 300 MG TAB.ER.24H 1 TAB PO QAM MENTAL HEALTH ( Reported) Butalb/Acetaminophen/Caffeine (Esgic 50-325-40 MG Tablet) 50 MG-325 MG-40 MG TABLET 1 TAB PO TID HEADACHES Clonazepam 1 MG TABLET 1 TAB PO TIDPRN MENTAL HEALTH (Reported) Ergocalciferol (Vitamin D2) (Vitamin D2) 50,000 UNIT CAPSULE 1 CAP PO QW VITAMIN SUPPORT (Reported) Fluconazole (Diflucan) 150 MG TABLET 1 TAB PO ONCE YEAST INFECTION Guaifenesin/Dextromethorphan (Robitussin Cough-Chest Dm Liq) 100 MG-5 MG/5 ML LIQUID 5-10 ML PO Q6P PRN COUGH Methylprednisolone. (Medrol) 4 MG TAB.DS.PK 1 DP PO AD PNA 6 on day 1 then reduce by one tablet daily until gone Quetiapine Fumarate (Seroquel XR) 200 MG TAB.ER.24H 1 TAB PO QPM MENTAL HEALTH (Reported) Quetiapine Fumarate (Seroquel XR) 150 MG TAB.ER.24H 1 TAB PO QPM MENTAL HEALTH (Reported) Sertraline HCl 100 MG TABLET 1 TAB PO DAILY DEPRESSION (Reported) Sulfamethoxazole/Trimethoprim (Bactrim Ds Tablet) 800 MG-160 MG TABLET 1 TAB PO BID abscess Tramadol HCl (Ultram) 50 MG TABLET 1 TAB PO Q6P PRN PAIN Triage Note: PT STATES SHE HAS PNA AND WAS SEEN YESTERDAY BECAUSE SHE WAS VOMITING. PT STATES SHE HAS A FEVER AND IS NOT FEELING BETTER. PT IS TAKING HER PO ABX BUT STATES SHE CAN'T STOP COUGHING. Triage Nurses Notes Reviewed? yes Onset: Gradual Duration: day(s): Timing: constant : No Patient currently breastfeeds: No HPI: 38-year-old female with a history of hypertension, migraines, arthritis presenting with cough and SOB over the last several days. Patient was seen in the emergency department for the same yesterday and had an x-ray that confirmed pneumonia. Patient was started on doxycycline, and she reports med compliance. Was also given an albuterol inhaler as needed for shortness of breath. Return to the emergency department now for persistent coughing. Reports a severe and persistent nonproductive cough. Has been continuing to spike fevers, and using Tylenol with good relief. Denies chest pain, shortness of breath, nausea, vomiting, abdominal pain, diarrhea, dysuria. (Lisette Burgos) Past History Travel History Traveled to [place] past 21 day No Medical History Any Pertinent Medical History? 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 No (Lisette Burgos) Review of Systems Review of Systems Constitutional: Reports: see HPI. EENTM: Reports: no symptoms. Respiratory: Reports: see HPI. Cardiovascular: Reports: no symptoms. GI: Reports: no symptoms. Genitourinary: Reports: no symptoms. Musculoskeletal: Reports: no symptoms. Skin: Reports: no symptoms. Neurological/Psychological: Reports: no symptoms. Hematologic/Endocrine: Reports: no symptoms. Immunologic/Allergic: Reports: no symptoms. (Lisette Burgos) Physical Exam Physical Exam General Appearance: well developed/nourished, alert, awake, mild distress, persistently coughing, unable to complete sentences due to coughing Head: atraumatic, normal appearance Eyes: Bilateral: normal appearance. Ears, Nose, Throat: normal ENT inspection Neck: normal inspection Respiratory: normal breath sounds, lungs clear Cardiovascular: tachycardia Gastrointestinal: soft, non-tender Back: normal inspection Extremities: normal inspection Neurologic/Psych: awake, alert, oriented x 3, normal gait, normal mood/affect Skin: intact, normal color, warm/dry Core Measures ACS in differential dx? No CVA/TIA Diagnosis: No Sepsis Present: No Sepsis Focused Exam Completed? No (Perez QUINTANILLA,Lisette) Progress Differential Diagnoses I considered the following diagnoses in my evaluation of the patient: [Pneumonia versus bronchitis versus URI, low concern for PE] Plan of Care: Orders Procedure Date/time Status Nothing by Mouth 03/04 B Active Patient Data 03/03 2244 Active Saline Lock 03/03 2241 Active Misc Message 03/03 2241 Active ED Holding Orders 03/03 2241 Active Admit to inpatient 03/03 2241 Active Vital Signs 03/03 2241 Active Code Status 03/03 2241 Active BLOOD CULTURE 03/03 182 Active LACTIC ACID 03/03 182 Complete COMPREHENSIVE METABOLIC PANEL 03/03 182 Complete CBC WITHOUT DIFFERENTIAL 03/03 1820 Complete EKG 03/03 182 Active Current Medications Sig/Wei Start time Last Medication Dose Stop Time Status Admin Albuterol Sulfate 3 ML ONCE ONE 03/03 2245 UNVr (Proventil) 03/03 2246 Ipratropium [place] 2.5 ML ONCE ONE 03/03 2245 UNVr (Atrovent) 03/03 2246 Laboratory Tests 03/03/18 2120: Lactic Acid Cancelled 03/03/18 1832: Anion Gap 9, Estimated GFR > 60, BUN/Creatinine Ratio 11.4, Glucose 83, Lactic Acid 1.2, Calcium 9.0, Total Bilirubin 0.3, AST 240 H, ALT 273 H, Alkaline Phosphatase 209 H, Total Protein 6.6, Albumin 3.7, Globulin 2.9, Albumin/ Globulin Ratio 1.3, CBC w Diff NO MAN DIFF REQ, RBC 3.95 L, MCV 89.0, MCH 30.7, MCHC 34.4, RDW 12.8, MPV 6.5 L, Gran % 76.8 H, Lymphocytes % 17.9 L, Monocytes % 4.6, Eosinophils % 0.4, Basophils % 0.3, Absolute Granulocytes 4.7, Absolute Lymphocytes 1.1 L, Absolute Monocytes 0.3, Absolute Eosinophils 0, Absolute Basophils 0 Microbiology 03/03 1900 BLOOD: Blood Culture - RECD 03/03 1848 BLOOD: Blood Culture - RECD Patient was given Robitussin, DuoNeb, and nebulized lidocaine for her cough with moderate improvement. Tachycardia resolved after Tylenol and fluids. However, patient is now hypoxic to 88-90% on room air. Placed on 2 L nasal cannula with improvement to the high 90s. Discussed with the hospitalist and will admit to [facility]. Labs remarkable for LFT abnormalities, patient does not have any abdominal pain at this time, her abdomen is soft nontender. She is status post cholecystectomy. Initial ED EKG: rhythm (sinus tach) (Lisette Burgos) Departure Departure Disposition: STILL A PATIENT Condition: Stable Clinical Impression Primary Impression: Pneumonia Secondary Impressions: Hypoxia Referrals: Aleida Shin MD (PCP/Family) Departure Forms: Customer Survey General Discharge Information Prescriptions: Current Visit Scripts Methylprednisolone. (Medrol) 1 DP PO AD #1 DP 6 on day 1 then reduce by one tablet daily until gone Admission Note Spoke With: Dago Keating MD Documentation of Exam: Documentation of any treatments & extenuating circumstances including Concerns Regarding Discharge (functional status, medication knowledge or non-compliance, living conditions, etc.) that warrant an admission rather than observation: [ Hemodynamic monitoring, supplemental oxygen, nebulizer treatments, IV steroids, IV antibiotics, IV fluids, antipyretics] (Lisette Burgos) PA/RESPITE CARE PROVIDER Co-Sign Statement Statement: ED Attending supervision documentation- [x] I saw and evaluated the patient. I have also reviewed all the pertinent lab results and diagnostic results. I agree with the findings and the plan of care as documented in the PA's/RESPITE CARE PROVIDER's documentation. 03/03/18, 22:42pm... pt with coarse breath sounds bilaterally. She notes improvement with neb... pt merits iv steroids/nebs/abx/02 support. [] I have reviewed the ED Record and agree with the PA's/RESPITE CARE PROVIDER's documentation. [] Additions or exceptions (if any) to the PAs/RESPITE CARE PROVIDER's note and plan are summarized below: [] (Martina ALEXANDER,Maciej Ybarra) Critical Care Note Critical Care Note Critical Care Time: non-applicable (Lisette Burgos) ED Attending Observation Initial Observation Note: I have seen and personally examined VALE SLOAN on 03/03/18 at 2141. I agree with the current emergency department documentation. The disposition (admission or discharge) is uncertain at this time, she needs a period of observation for the following reason(s): The ED Nurse caring for this patient has been personally informed as to what the patient is being observed for. (Lisette Burgos)
[2018-03-03] MEDS ORDERED: MEDROL4 M2 PO (20:44)
--- NOTE | 2018-03-04 00:25 | History & Physical ---
Jani Mendez 03/04/18 0024: General Information and HPI MD Statement: I have seen and personally examined VALE BROWN and documented this H&P. The patient is a 38 year old F who presented with a patient stated chief complaint of [Cough and SOB]. Source of Information: patient Exam Limitations: no limitations History of Present Illness: Ms. Brown is 38 yo female with PMHx signifcant for HTN, Bipolar 1, Migraines, OA, Endometriosis, Anxiety, and Depression. She presents with cough and SOB starting thursday. She woke up with chest tightness on thursday which after worsening on the following day, led her to go to and see her local urgent care clinic. There they performed a cxr which gave a suspicion for pneumonia and therefore started her on doxycycline. She went to see her PCP on Thursday who advised her to go to the ER. Patient continued to have worseing chest tightness and eventually started to develop a dry cough. She also noticed she had a low grade fever of 99.4F, so came to the ER. She did not meet criterial and therefore was sent back home and advised to continue doxycycline. The next day she had a fever of 103.2F and took 3 maximum strength tylenols without any improvement in her fever. Patient endorses having chills, wheezing, palpitations, diarrhea of 8 BMs, and nonbillous vomiting over the past few days. She also reports that several of her family members (sister, aunt, niece) all have asthma. She denies any sick contacts or recent travel. She has been smoking 3/4 pack per day since age 15. 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 EENTM: Reports: throat pain. Denies: nasal congestion. Cardiovascular: Reports: palpitations. Respiratory: Reports: cough, short of breath, wheezing. Denies: sputum production. GI: Reports: diarrhea. Denies: nausea, vomiting. Genitourinary: Denies: dysuria. Musculoskeletal: Denies: joint pain. Skin: Denies: rash. Neurological/Psychological: Reports: anxiety, depressed, headache. Hematologic/Endocrine: Reports: no symptoms. Immunologic/Allergic: Denies: lymphadenopathy. All Other Systems: Reviewed and Negative Exam & Diagnostic Data Last 24 Hrs of Vital Signs/I&O Vital Signs Date Time Temp Pulse Resp B/P B/P Pulse O2 O2 Flow FiO2 Mean Ox Delivery Rate 03/04 1600 95 Nasal 2.0L Cannula 03/04 1416 98.7 102 22 132/88 95 03/04 1247 Nasal 2.0L Cannula 03/04 1241 94 Nasal 2.0L Cannula 03/04 0800 95 Nasal 3.0L Cannula 03/04 0631 98.7 90 20 120/70 94 Nasal 3.0L Cannula 03/04 0519 93 Nasal 3.0L Cannula 03/04 0045 96 Nasal 3.0L Cannula 03/04 0042 98.9 98 20 100/64 95 Nasal 3.0L Cannula 03/03 2352 99.3 83 18 127/84 95 Nasal 3.0L Cannula 03/03 2245 99.4 89 18 127/74 98 Nasal 2.0L Cannula 03/03 2237 88 Room Air 03/03 2236 96 Nasal 2.0L Cannula 03/03 2104 102.0 118 94 Room Air 03/03 2041 101.5 107 20 171/83 94 Room Air 03/03 1952 103.2 03/03 1917 Room Air 03/03 191 95 Intake & Output 03/04 1600 03/04 0800 03/04 0000 Intake Total 010 864 5004 Output Total 200 Balance 602 807 3801 Intake, IV 30 250 1000 Intake, Oral 720 350 Output, Urine 200 Patient 162 lb 168 lb Weight Weight Bed scale Reported by Patient Measurement Method Physical Exam General Appearance Alert, Oriented X3, Cooperative, Mild Distress Skin No Rashes Skin Temp/Moisture Exam: Hot/Diaphoretic Sepsis Skin Exam (color): Normal for Ethnicity HEENT Atraumatic, PERRLA, EOMI Neck Supple, No LAD Cardiovascular Normal S1, Normal S2 Lungs B/L Wheezing Abdomen Normal Bowel Sounds, Soft Neurological Normal Speech Extremities Normal Pulses, No Tenderness/Swelling Vascular Normal Pulses Assessment/Plan Assessment: Vitals on admission were MAXIMUM TEMPERATURE of 93.2, heart rate 120, respiratory rate 18, BP 129/97, and O2 sats 94% on room air. WBC count of H 12.1/35.2, platelet count 291, sodium 143, potassium 3.9, BUN/ creatinine is 8/0.7, AST 240, AST 273, alkaline phosphatase 209, lactic acid 1.2. Blood cultures pending. Problem list: 1. Community-acquired Pneumonia 2. Transaminitis (likely due to acetaminophen abuse) 3. Abdominal Pain 4. HTN (no longer on meds) 5. Anxiety 6. Bipolar 1 (Depression) - Admit the patient to general medicine floor - Start ceftriaxone and azithromycin - IV Solu-Medrol 40 mg Q8h given wheezing - CT chest without contrast in am - Follow-up blood cultures - Follow sputum cultures - Urine strep and Legionella antigen - Supplemental oxygen prn - TRC evaluation - Outpatient work up for Asthma - C.Diff given recent antibiotic use and diarrhea with abdominal pain - Continue home medications - DVT prophylaxis - Patient is full code As Ranked By This Provider Problem List: 1. Pneumonia 2. Headache 3. Diarrhea 4. Hypoxia 5. Transaminitis Core Measures/Misc (05/17) Acute Coronary Syndrome ACS Diagnosis: No Congestive Heart Failure Congestive Heart Failure Diagnosis No Cerebrovascular Accident CVA/TIA Diagnosis: No VTE (View Protocol) VTE Risk Factors Smoker No Mechanical VTE Prophylaxis d/t N/A MechProphylax Ordered No VTE Pharm Prophylaxis d/t NA PharmProphylax ordered Sepsis (View protocol) Sepsis Present: No If YES complete Sepsis Event Note If YES complete Sepsis Event Note Dago Keating MD 03/04/18 0402: General Information and HPI Allergies/Medications Home Med list Bupropion HCl (Bupropion XL) 300 MG TAB.ER.24H 1 TAB PO QAM MENTAL HEALTH ( Reported) Butalb/Acetaminophen/Caffeine (Esgic 50-325-40 MG Tablet) 50 MG-325 MG-40 MG TABLET 1 TAB PO QAM HEADACHES Clonazepam 1 MG TABLET 1 TAB PO DAILY MENTAL HEALTH (Reported) Ergocalciferol (Vitamin D2) (Vitamin D2) 50,000 UNIT CAPSULE 1 CAP PO QW VITAMIN SUPPORT (Reported) Guaifenesin/Dextromethorphan (Robitussin Cough-Chest Dm Liq) 100 MG-5 MG/5 ML LIQUID 5-10 ML PO Q6P PRN COUGH Quetiapine Fumarate (Seroquel XR) 300 MG TAB.ER.24H 1 TAB PO QPM MENTAL HEALTH (Reported) Sertraline HCl 100 MG TABLET 1 TAB PO DAILY DEPRESSION (Reported) Tramadol HCl (Ultram) 50 MG TABLET 1 TAB PO Q6P PRN PAIN Core Measures/Misc (05/17) Sepsis (View protocol) If YES complete Sepsis Event Note If YES complete Sepsis Event Note Attending MD Review Statement Attending Statement Attending MD Statement: examined this patient, discuss w/resident/PA/METAL FORGER'S ASSISTANT Attending Assessment/Plan: This patient is a 38-year-old female with a significant past medical history for bipolar disorder, chronic tobacco use, family history of asthma and severe endometriosis is leading to several surgeries and hysterectomy. Patient was in her usual state of health until 4 days prior to admission when she started developing a severe cough. The patient was evaluated in urgent care where she was placed on doxycycline. According to the patient a chest x-ray was performed at that point demonstrated a right upper lobe lesion. The patient continued on therapy however her cough became more persistent. She was evaluated by her primary care doc and in the emergency department but did not meet criteria for admission. The patient presents today with persistent cough and hypoxia. Attempts to treat on an outpatient basis was unsuccessful including nebulizers and steroids. Upon my examination the patient was comfortable with episodes of dry cough. She states that she's been running a fever has been normal since coming to the ER and she has a normal white blood cell count. Allergiescodeine, ibuprofen, Ketorolac Past medical history, social history, family history and review of systems per resident's note Vitals temperature 98.9 heart rate 98 respiratory rate 20 pressure 100/64 satting at 95% on 3 L Awake alert oriented 3 Pupils equal and reactive to light and accommodation equal ocular motion Neck supple no JVD Lungs with decreased breath sounds and expiratory wheeze Heart regular rate and rhythm S1-S2 abdomen soft nontender nondistended No neurologic deficit Significant labsLFTs elevated white blood cell count normal Microbiology pending No radiologic studies Assessment and plan This patient is a 38-year-old female with question pneumonia. At this point would treat her as a community-acquired pneumonia as he continued to work her up. We'll start ceftriaxone and azithromycin both consider a CT scan in the a.m. She has an elevation in her LFTs and is stated that she's been taking quite a bit of Tylenol. We'll obtain a Tylenol level. We'll continue outpatient meds per resident's note above. Serina ALEXANDER,Donita 03/04/18 0543: Core Measures/Misc (05/17) Sepsis (View protocol) If YES complete Sepsis Event Note If YES complete Sepsis Event Note Resident Review Statement Resident Statement: examined this patient, discussed with international marketing specialist, agreed with international marketing specialist, reviewed EMR data (avail), discussed with nursing Other Findings: Ms. Brown is a 38-year-old lady with past medical history significant for HTN ( not on meds),Bipolar disorder, migraine headaches, osteoarthritis, endometriosis , anxiety and depression presents with cough and shortness of breath starting Thursday. The patient she had some chest tightness on Thursday which got worse the next day. She went to walk-in clinic, x-ray was done at that time which showed pneumonia and she was started on doxycycline. She went to see her primary care physician on Thursday and she told her to go to the ER the patient went back home. She continued to have low-grade fever of around 99.4. She decided to come to the ER yesterday but was sent back home with recommendations to continue doxycycline. On the morning of presentation she had a MAXIMUM TEMPERATURE of 103.4, took 3 maximum strength Tylenol without any relief. Also she had a small cough starting Thursday which gradually got worse, yesterday had a severe persistent cough and felt very congested but was unable to bring up any phlegm. Also reports chills, palpitations with fever, wheezing. She also endorses diarrhea(6 bowel movements yesterday and 2 this morning) and nonbilious vomiting also starting since Thursday. She reports seasonal allergies and has a family history of asthma but she herself was never diagnosed with asthma. Denies any sick contacts or recent travel. She is a current active smoker smokes 3/4 packs per day since age 15. Denies any alcohol or recreational drug use. Vitals on admission were MAXIMUM TEMPERATURE of 93.2, heart rate 120, respiratory rate 18, BP 129/97, and O2 sats 94% on room air. She had a WBC count of H 12.1/35.2, platelet count 291, sodium 143, potassium 3.9, BUN/creatinine is 8/0.7, AST 240, AST 273, alkaline phosphatase 209, lactic acid 1.2. Blood cultures pending. On Lung auscultation she had decreased breath sounds bilaterally with expiratory wheezing. Problem list; 1. Community-acquired Pneumonia 2. Transaminitis 3. Abdominal Pain 4. Chronic medical conditions - Admit the patient to general medicine floor - Start patient on ceftriaxone and azithromycin - Also start the patient on IV Solu-Medrol 40 mg every 8 given wheezing. - CT chest without contrast in am - Follow-up blood cultures - Follow sputum cultures - Urine strep and Legionella antigen - Supplemental oxygen as needed - TRC evaluation - Outpatient work up for Asthma - Zofran as needed for nausea and vomiting - C.Diff given recent antibiotic use and diarrhea with abdominal pain. - Check Tylenol level - Continue home medications DVT prophylaxis; subcutaneous Lovenox and Alps Patient is full code
[2018-03-04 00:42] VITALS: BP 100/64
[2018-03-04] MEDS ORDERED: SEROQUEL XR300 M1 PO (01:06)
[2018-03-04] MEDS ORDERED: ESGIC 50-325-41 EACH PO (01:07)
[2018-03-04 06:31] VITALS: BP 120/70
--- NOTE | 2018-03-04 07:23 | PN- Housestaff ---
LarryGissell 03/04/18 0723: Subjective Follow-up For: #Community-acquired Pneumonia #Transaminitis, likely Tylenol overdose #Abdominal Pain, intractable, s/p hysterectomy, #Wheezing, pending rule out asthma #Chronic medical conditions Subjective: Patient still felt coughing a lot and endorsed lower ab/suprapubic pain and RUQ soreness. HOwever not in acute distress and had no other specific complaint. Review of Systems Constitutional: Reports: see HPI. Objective Last 24 Hrs of Vital Signs/I&O Vital Signs Date Time Temp Pulse Resp B/P B/P Pulse O2 O2 Flow FiO2 Mean Ox Delivery Rate 03/04 0631 98.7 90 20 120/70 94 Nasal 3.0L Cannula 03/04 0519 93 Nasal 3.0L Cannula 03/04 0045 96 Nasal 3.0L Cannula 03/04 0042 98.9 98 20 100/64 95 Nasal 3.0L Cannula 03/03 2352 99.3 83 18 127/84 95 Nasal 3.0L Cannula 03/03 2245 99.4 89 18 127/74 98 Nasal 2.0L Cannula 03/03 2237 88 Room Air 03/03 223 96 Nasal 2.0L Cannula 03/03 2104 102.0 118 94 Room Air 03/03 2041 101.5 107 20 171/83 94 Room Air 03/03 1952 103.2 07/ 1917 Room Air 07/ 1916 95 /04 1822 103.2 120 18 129/97 94 Room Air Intake & Output 03/04 0800 07/ 0000 03/03 1600 Intake Total 600 1000 Output Total 200 Balance 400 1000 Intake, IV 250 1000 Intake, Oral 350 Output, Urine 200 Patient 73.567 kg 76.204 kg Weight Weight Bed scale Reported by Patient Measurement Method Physical Exam General Appearance: Alert, Oriented X3, Cooperative, No Acute Distress Cardiovascular: Regular Rate Lungs: Clear to Auscultation, Normal Air Movement Abdomen: Soft, lower ab/Suprapubic tenderness Neurological: Normal Speech, Strength at 5/5 X4 Ext Extremities: No Cyanosis, No Edema, Normal Pulses Current Medications: Current Medications Sig/Wei Start time Last Medication Dose Route Stop Time Status Admin Acetaminophen 650 MG Q6PRN PRN 03/04 0130 DC PO Acetaminophen 975 MG ONCE ONE 03/03 2000 DC 03/03 PO 03/03 Acetaminophen 0 .STK-MED ONE 03/03 1951 DC PO Acetaminophen/ 1 TAB QAM 03/04 0900 AC 03/04 Butalbital/Caffeine PO 0916 Albuterol Sulfate 3 ML EVERY 4 HRS/AWAKE 03/04 1600 AC 03/04 INH 1330 Albuterol Sulfate 3 ML ONCE ONE 03/04 0500 DC 03/04 INH 03/04 0501 0508 Albuterol Sulfate 3 ML ONCE ONE 03/03 2245 DC 03/03 INH 03/03 2246 2235 Albuterol Sulfate 3 ML ONCE ONE 03/03 1900 DC 03/03 INH 03/03 1901 1910 Azithromycin 500 MG DAILY 03/04 0115 AC 03/04 Sodium Chloride 250 ML IV 0138 Benzonatate 100 MG TID 03/04 1004 AC 03/04 PO 1333 Bupropion HCl 300 MG QAM 03/04 0900 AC 03/04 PO 0915 Ceftriaxone Sodium 1,000 MG DAILY 03/05 0130 DC IV Ceftriaxone Sodium 1,000 MG 0130 03/05 0130 AC IV Ceftriaxone Sodium 1,000 MG Q24H 03/05 0130 AC IV Ceftriaxone Sodium 1,000 MG DAILY 03/04 0115 DC 03/04 IV 0138 Clonazepam 1 MG DAILY 03/04 0900 AC 03/04 PO 07 0859 0915 Diphenhydramine HCl 25 MG ONCE PRN 03/04 0100 DC 03/04 PO 03/04 0700 0130 Diphenhydramine HCl 0 .STK-MED ONE 03/03 2151 DC .ROUTE Diphenhydramine HCl 50 MG ONCE ONE 03/03 2145 DC 03/03 IV 03/03 2146 2157 Doxycycline Hyclate 0 .STK-MED ONE 03/03 2119 DC PO Doxycycline Hyclate 100 MG ONCE ONE 03/03 2115 DC 03/03 PO 03/03 2116 2120 Enoxaparin Sodium 40 MG DAILY 03/04 0900 AC 03/04 SC 0916 Guaifenesin 600 MG Q12 03/04 0100 AC 03/04 PO 0915 Guaifenesin/Codeine 10 ML Q4-6 PRN PRN 03/04 0100 AC 03/04 Phosphate PO 0556 Guaifenesin/ 10 ML Q6P PRN 03/04 1615 UNVr Dextromethorphan PO Guaifenesin/ 10 ML ONCE ONE 03/03 2000 DC 03/03 Dextromethorphan PO 03/03 Ipratropium [place] 2.5 ML EVERY 4 HRS/AWAKE 03/04 1600 AC 03/04 INH 1233 Ipratropium [place] 2.5 ML ONCE ONE 03/03 2245 DC 03/03 INH 03/03 2246 2235 Ipratropium [place] 2.5 ML ONCE ONE 03/03 1900 DC 03/03 INH 03/03 1901 1910 Lidocaine 0 .STK-MED ONE 03/03 1958 DC .ROUTE Lorazepam 0.5 MG ONE ONE 03/04 1415 DC 03/04 PO 03/04 1416 1425 Methylprednisolone 40 MG DAILY 03/05 900 CAN IV Methylprednisolone 40 MG Q8 03/04 600 DC 03/04 IV 0556 Methylprednisolone 0 .STK-MED ONE 03/03 1911 DC .ROUTE Methylprednisolone 60 MG ONCE ONE 03/03 190 DC 03/03 IV 03/03 190 191 Morphine Sulfate 2 MG Q4P PRN 03/04 0215 AC 03/04 IV 0226 Morphine Sulfate 4 MG ONCE ONE 03/03 2115 DC 03/03 IV 03/03 211 211 Morphine Sulfate 0 .STK-MED ONE 03/03 2106 DC .ROUTE Morphine Sulfate 0 .STK-MED ONE 03/03 1911 DC .ROUTE Morphine Sulfate 4 MG ONCE ONE 03/03 1900 DC 03/03 IV 03/03 190 191 Nicotine 14 MG DAILY 03/04 0115 AC 03/04 TOP 0916 Ondansetron HCl 4 MG .STK-MED ONE 03/04 1521 DC PO 03/04 1522 Ondansetron HCl 4 MG ONCE ONE 03/04 0145 DC 07 PO 03/04 0146 0150 Prednisone 40 MG DAILY 03/05 900 AC PO Sertraline HCl 100 MG DAILY 03/04 0900 AC 03/04 PO 0915 Sodium Chloride 1,000 ML BOLUS ONE 03/03 2115 DC 03/03 IV 03/03 2214 211 Last 24 Hrs of Lab/Grabiel Results Last 24 Hrs of Labs/Mics: Laboratory Tests 03/04/18 06: Anion Gap 11, Estimated GFR > 60, BUN/Creatinine Ratio 18.0, Total Bilirubin 0.2 , Direct Bilirubin 0.2, AST 108 H, ALT 221 H, Alkaline Phosphatase 186 H, Troponin I < 0.01, Total Protein 6.4, Albumin 3.5, CBC w Diff NO MAN DIFF REQ, RBC 3.70 L, MCV 89.7, MCH 30.5, MCHC 34.1, RDW 13.4, MPV 7.4, Gran % 86.2 H, Lymphocytes % 11.4 L, Monocytes % 2.1, Eosinophils % 0, Basophils % 0.3, Absolute Granulocytes 7.2 H, Absolute Lymphocytes 1.0 L, Absolute Monocytes 0.2, Absolute Eosinophils 0, Absolute Basophils 0, Acetaminophen < 10.0 L 03/04/18 0050: Anion Gap 13, Estimated GFR > 60, BUN/Creatinine Ratio 15.0 03/03/182119: Lactic Acid Cancelled 03/03/18 183: Anion Gap 9, Estimated GFR > 60, BUN/Creatinine Ratio 11.4, Glucose 83, Lactic Acid 1.2, Calcium 9.0, Total Bilirubin 0.3, AST 240 H, ALT 273 H, Alkaline Phosphatase 209 H, Total Protein 6.6, Albumin 3.7, Globulin 2.9, Albumin/ Globulin Ratio 1.3, CBC w Diff NO MAN DIFF REQ, RBC 3.95 L, MCV 89.0, MCH 30.7, MCHC 34.4, RDW 12.8, MPV 6.5 L, Gran % 76.8 H, Lymphocytes % 17.9 L, Monocytes % 4.6, Eosinophils % 0.4, Basophils % 0.3, Absolute Granulocytes 4.7, Absolute Lymphocytes 1.1 L, Absolute Monocytes 0.3, Absolute Eosinophils 0, Absolute Basophils 0, HIV 1&2 Ab Western Blot NONREACTIVE Microbiology 03/04 920 LOWER RESP: Respiratory Culture - CAN Cancelled: NUMBER OF SQUAMOUS CELLS INDICATES POOR QUALITY SPECIMEN 03/04 920 LOWER RESP: Gram Stain - CAN Cancelled: NUMBER OF SQUAMOUS CELLS INDICATES POOR QUALITY SPECIMEN 03/04 620 STOOL: Clostridium difficile Toxin A & B - COLB 03/04 432 URINE ROUT: Legionella Antigen - COMP 03/04 432 URINE ROUT: Streptococcus pneumoniae Antigen (M - COMP 03/03 1900 BLOOD: Blood Culture - RES 03/03 184 BLOOD: Blood Culture - RES Assessment/Plan Assessment: Ms. Brown is a 38-year-old lady with past medical history significant for HTN ( not on meds),Bipolar disorder, migraine headaches, osteoarthritis, endometriosis , anxiety and depression presents with cough and shortness of breath starting Thursday. She failed outpatient treatment of doxycycline despite xray showed RLL PNA, saw PCP -> ER on thursday however did not meet criteria for admission. 7/ AM TMax 103.4, took 3 max strength Tylenol without relief, endorsed chills, palpitations w/ fever, wheezing, diarrhea (total 8 BMS), and nonbilious vomiting. She endorsed seasonal allergies, and FHx of Asthma however herself was not definitively diagnose. Active smoker 3/4 PPD since age 15. She Denies any alcohol or recreational drug use. Vitals on admission were MAXIMUM TEMPERATURE of 93.2, heart rate 120, respiratory rate 18, BP 129/97, and O2 sats 94% on room air. She had a WBC count of H 12.1/35.2, platelet count 291, sodium 143, potassium 3.9, BUN/creatinine is 8/0.7, AST 240, AST 273, alkaline phosphatase 209, lactic acid 1.2. Blood cultures pending. On Lung auscultation she had decreased breath sounds bilaterally with expiratory wheezing. Problem list; #Community-acquired Pneumonia #Transaminitis, likely Tylenol overdose #Abdominal Pain, intractable, s/p hysterectomy, #Wheezing, pending rule out asthma #Chronic medical conditions - Continue on ceftriaxone and azithromycin - Continue on IV Solu-Medrol 40 mg tapered to daily, and pending switch to 3 more days of prednisone tx for a likely CAP induced asthma exacerbation/ Respiratory stress. - CT chest + AB without contrast in am due to her intractable pain in abdomin, not relieved by morphine, transaminitis pending rule out other etiology than tylenol, and s/p hysterectomy from endometriosis - Follow-up blood cultures - Follow sputum cultures - Urine strep and Legionella antigen negative - Supplemental oxygen as needed, still on 3LNC, baseline RA. - TRC evaluation - Outpatient work up for Asthma pending - Zofran as needed for nausea and vomiting - Pending C.Diff given recent antibiotic use and diarrhea with abdominal pain - Tylenol level wnl - Continue home medications DVT prophylaxis; subcutaneous Lovenox and Alps Patient is full code Problem List: 1. Pneumonia Pain Ratin Pain Location: lower ab Pain Goal: Pain 4 or less Pain Plan: see AP Tomorrow's Labs & Rationales: CBC/BEP Renate Teresa 03/04/18 1113: Attending MD Review Statement Attending Statement Attending MD Statement: examined this patient, discuss w/resident/PA/GAS MASK INSPECTOR, agreed w/resident/PA/GAS MASK INSPECTOR, discussed with family, reviewed EMR data (avail), discussed with nursing, discussed with case mgmt, reviewed images, amended to note Attending Assessment/Plan: Plan as above, follow CT chest results.
[2018-03-04 08:25] LABS: ABSOLUTE BASOPHIL COUNT 0 /CUMM (0.0-0.2); ABSOLUTE EOSINOPHIL COUNT 0 /CUMM (0.0-0.7); ABSOLUTE GRANULOCYTE CT 7.2 /CUMM (1.4-6.5); ABSOLUTE MONOCYTE COUNT 0.2 /CUMM (0.10-0.60); BASOPHIL % 0.3 % (0.0-2.0); EOSINOPHIL % 0 % (0-5); HEMATOCRIT 33.1 % (37-47); MEAN CORPUSCULAR HGB 30.5 PG (27.0-31.0); MEAN CORPUSCULAR HGB CONC 34.1 G/DL (33.0-37.0); MEAN CORPUSCULAR VOLUME 89.7 FL (81.0-99.0); MEAN PLATELET VOLUME 7.4 FL (7.4-10.4); PLATELET COUNT 269 /CUMM (130-400); RBC DISTRIBUTION WIDTH 13.4 % (11.5-14.5); WHITE BLOOD CELL COUNT 8.4 /CUMM (4.8-10.8)
[2018-03-04 08:58] LABS: GRANULOCYTE % 86.2 % (42.2-75.2)
[2018-03-04 14:16] VITALS: BP 132/88
--- NOTE | 2018-03-04 14:48 | CT SCAN REPORT ---
EXAMINATION: CT CHEST, ABDOMEN AND PELVIS WITHOUT CONTRAST CLINICAL INFORMATION: Hypoxic, persistent severe cough. Presumptive diagnosis of pneumonia. Rule out abscess or cavitary lesion. Patient admitted for pneumonia. However also nausea, vomiting, diarrhea and intractable abdominal pain status post morphine. Rule out acute intra-abdominal process. COMPARISON: Chest x-ray dated 03/02/2018. The T scan of the abdomen and pelvis dated 11/17/2017 and several older exams. TECHNIQUE: Multidetector volumetric imaging was performed from the base of the neck through the pubic symphysis. Sagittal and coronal reformatted images were obtained on the technologist workstation. DLP: 512.48 mGy-cm. FINDINGS: CT SCAN OF THE CHEST: LUNGS: Lungs bilaterally symmetrically expanded. There are patchy areas of bilateral groundglass opacities in the lungs. Superimposed denser areas of irregular consolidation are seen the right upper lobe and in the left lower lobe and to a lesser extent in the right lower lobe with associated air bronchograms. There are trace bilateral pleural effusions. No pneumothorax. Central airways mildly narrowed but patent. LYMPHOVASCULAR STRUCTURES: Aortic size normal. Mild enlargement of the heart is seen with primarily left ventricular enlargement seen. No pericardial effusion. No mediastinal, hilar or axillary adenopathy or free fluid collection. THYROID GLAND: Unremarkable to the extent included. BONES: No suspicious focal findings. CT SCAN OF THE ABDOMEN AND PELVIS: LIVER, GALLBLADDER, AND BILIARY TREE: The liver is normal in size, shape, and attenuation. No focal hepatic lesion on noncontrast imaging. No biliary ductal dilatation is present. The gallbladder is surgically absent. No focal fluid collection seen in the gallbladder fossa. PANCREAS: Unremarkable on noncontrast imaging. SPLEEN, ADRENAL GLANDS: Small accessory splenule seen in the splenic hilar region, unchanged. Spleen otherwise unremarkable on noncontrast imaging. Adrenal glands normal. KIDNEYS AND URETERS: The kidneys are normal in size, shape, and attenuation. No hydronephrosis, hydroureter, or calculi seen. No perinephric stranding. BLADDER: Unremarkable. PELVIC VISCERA: The patient is status post hysterectomy and presumably oophorectomy. No suspicious adnexal mass. A right lower quadrant clip is seen in the pelvis in between the bladder and the cecum. GASTROINTESTINAL TRACT: The small and large bowel are unremarkable. The appendix is not definitely identified, but no focal inflammatory process is seen in the right lower quadrant. ABDOMINAL WALL: There is a tiny fat-containing umbilical hernia. Small amount of air and stranding is seen in the left anterior abdominal wall, consistent with subcutaneous injection. LYMPH NODES, VASCULAR: Again seen are tiny subcentimeter sized periportal and periceliac axis lymph nodes, unchanged. No abdominal or pelvic adenopathy or significant free fluid is noted. The abdominal aorta is normal in caliber and unremarkable. No periaortic collections. OSSEOUS STRUCTURES: Unremarkable. IMPRESSION: 1. Diffuse lung parenchymal abnormalities are seen with patchy groundglass opacities and denser areas of consolidation seen. Findings are consistent with a diffuse multi lobar pneumonia. No evidence of lung parenchymal cavitation or empyema is seen. Trace bilateral reactive pleural effusions are noted. 2. No acute intra-abdominal or pelvic process seen. 3. Bowel loops appear unremarkable.
[2018-03-04 22:24] VITALS: BP 150/90
[2018-03-05 06:34] VITALS: BP 106/68
--- NOTE | 2018-03-05 06:44 | PN- Housestaff ---
Boom Lacey 03/05/18 0644: Subjective Follow-up For: lobular pneumonia Complaints: pain scale (0-10) (9, largely from coughing) Subjective: Patient seen and examined at bedside. Patient still coughing a lot, but the abdominal pain subsided. Endorsed aches "head to toe", continued to ask for pain medication. Review of Systems Constitutional: Reports: no symptoms. Objective Last 24 Hrs of Vital Signs/I&O Vital Signs Date Time Temp Pulse Resp B/P B/P Pulse O2 O2 Flow FiO2 Mean Ox Delivery Rate 03/05 0902 96 130/90 95 Nasal 1.0L Cannula 03/05 0845 95 Nasal 1.0L Cannula 03/05 0800 95 Nasal 1.0L Cannula 03/05 0634 98.2 81 22 106/68 94 Nasal 2.0L Cannula 03/05 0633 91 Room Air 03/05 0352 92 Nasal 2.0L Cannula 03/05 0000 96 Nasal 2.0L Cannula 03/04 2224 99.0 93 24 150/90 96 Nasal 2.0L Cannula 03/04 1700 95 Nasal 2.0L Cannula 03/04 1600 95 Nasal 2.0L Cannula /05 1416 98.7 102 22 132/88 95 Intake & Output 03/05 1600 /06 0800 07 0000 Intake Total 360 360 Output Total Balance 360 360 Intake, Oral 360 360 Physical Exam General Appearance: Alert, Oriented X3, Cooperative, Moderate Distress Skin: No Rashes, No Breakdown Skin Temp/Moisture Exam: Warm/Dry Sepsis Skin Exam (color): Normal for Ethnicity HEENT: Atraumatic, PERRLA, EOMI Neck: Supple, No thryomegaly Cardiovascular: Regular Rate, Normal S1, Normal S2, No Murmurs Lungs: Clear to Auscultation (slight wheezing) Abdomen: Soft (slight pain to palpation) Neurological: Normal Gait, Normal Speech, Strength at 5/5 X4 Ext, Normal Tone, Sensation Intact Extremities: No Edema, Normal Pulses Assessment/Plan Assessment: Patient is a 38-year-old lady with past medical history of hypertension, bipolar disorder, migraine headaches, osteoarthritis, endometriosis, anxiety and depression who presents with cough and shortness of breath starting Thursday. She failed outpatient treatment with doxycycline. On Thursday she did not meet criteria for admission. 03/03/18 temperature was 103.4 took Tylenol without relief, endorses chills palpitations, fever, wheezing, diarrhea, nonbilious vomiting. Chest CT showed diffuse lung parenchymal abnormalities and denser areas of consolidation findings are consistent with a diffuse multilobular pneumonia. Trace bilateral reactive pleural effusions also noted. Problem list: Plan: to 3 more days of prednisone for likely community-acquired pneumonia induced as asthma exacerbation/respiratory stress pneumonia and no acute intra-abdominal pathology -Supplemental oxygen as needed DVT prophylaxis: subcu heparin and Alps Patient is full code Problem List: 1. Transaminitis 2. Nausea vomiting and diarrhea 3. Hypoxia 4. Diarrhea 5. Pneumonia Pain Ratin Pain Location: General Pain Goal: Pain 4 or less Pain Plan: One-time Dilaudid, generally avoid opiates. Tomorrow's Labs & Rationales: No labs Renate Teresa 03/05/18 1054: Attending MD Review Statement Attending Statement Attending MD Statement: examined this patient, discuss w/resident/PA/REMARKETING REP, agreed w/resident/PA/REMARKETING REP, discussed with family, reviewed EMR data (avail), discussed with nursing, discussed with case mgmt, reviewed images, amended to note Attending Assessment/Plan: Patient seen/examined bedside. Patient admitted for commuinty acquired pneumonai with multilobar pattern on chest CT scan. She is on oxygen supplementation 2l nasal cannula. She c/o cough not relieved by mucinex. Patient is receiving iv antibitoics. Follow blood cultures. Urine for strep and legionella negative. Patient with slow clinical improvement duirng the hospitalisation. Generalised weakness and body aches with pain: avoid use of opiates. Plan is to titrate oxygen as needed, continue iv antibiotics, transtion to oral tomorrow, anticipate disharge in next 24-48 hrs. gi/dvt prophyalxis
[2018-03-05 09:02] VITALS: BP 130/90
--- NOTE | 2018-03-05 13:41 | Patient Discharge Instructions ---
Discharge Instructions General Discharge Information Special Instructions: - Please follow up w/ Dr. Lang for workup of Asthma/Pulmonary function test. - Please follow up with your primary care physician within 1-2 weeks of discharge. Inform your primary care physician of this admission to [facility]. - Continue your current medications per discharge instructions. - Please watch for these problems: Fever, Chills, Nausea, Vomiting, Shortness of Breath, Productive Cough, Chest Pain/Discomfort, Abdominal Pain, Active Bleeding or Bloody urine/stool. Diet Continue normal diet: Yes Activity Full Activity/No Limits: Yes Acute Coronary Syndrome Inclusion Criteria At DC or during hospital stay patient has or had the following: ACS DIAGNOSIS No Discharge Core Measures Meds if any: Prescribed or Continued at Discharge Meds if any: NOT Prescribed or Continued at Discharge Congestive Heart Failure Inclusion Criteria At DC or during hospital stay patient has or had the following: CHF DIAGNOSIS No Discharge Core Measures Meds if any: Prescribed or Continued at Discharge Meds if any: NOT Prescribed or Continued at Discharge Cerebrovascular accident Inclusion Criteria At DC or during hospital stay patient has or had the following: CVA/TIA Diagnosis No Discharge Core Measures Meds if any: Prescribed or Continued at Discharge Meds if any: NOT Prescribed or Continued at Discharge Venous thromboembolism Inclusion Criteria VTE Diagnosis No VTE Type NONE VTE Confirmed by (Test) NONE Discharge Core Measures - Per Current guidelines, there needs to be overlap - treatment for the first 5 days of Warfarin therapy. - If discharged on Warfarin prior to 5 days of - overlap therapy, the patient will need to be - assessed for post discharge needs including - *Post discharge parental anticoagulation - *Warfarin and/or parental anticoagulation education - *Follow up date to check INR post discharge At least 5 days overlap therapy as Inpatient No Meds if any: Prescribed or Continued at Discharge Note: Overlap Therapy is Warfarin and Anticoagulant Meds if any: NOT Prescribed or Continued at Discharge
[2018-03-05 13:48] VITALS: BP 138/70
[2018-03-05] MEDS ORDERED: AZITHROMYCIN250 M1 PO (14:22)
--- NOTE | 2018-03-05 15:29 | Discharge Summary ---
Hospital Course Allergies: Coded Allergies: ketorolac (Mild, TOOTH PAIN 11/20/16) codeine (INSOMNIA, GI, HIVES, HEART ACCELERATES 11/20/16) ibuprofen (GI, HIVES, VOMIT 11/20/16) Discharge Instructions Medications at Discharge Discharge Medications: Stop taking the following medications: Fluconazole (Diflucan) 150 MG TABLET ORAL GIVE ONCE Qty = 1 Sulfamethoxazole/Trimethoprim (Bactrim Ds Tablet) 800 MG-160 MG TABLET ORAL TWICE DAILY Qty = 20 Quetiapine Fumarate (Seroquel XR) 200 MG TAB.ER.24H ORAL Every night Qty = 30 Quetiapine Fumarate (Seroquel XR) 150 MG TAB.ER.24H ORAL Every night Qty = 30 Continue taking these medications: Ergocalciferol (Vitamin D2) (Vitamin D2) 50,000 UNIT CAPSULE 1 Capsule ORAL Once a Week Qty = 8 Sertraline HCl (Sertraline HCl) 100 MG TABLET 1 Tablet ORAL DAILY Qty = 60 Clonazepam (Clonazepam) 1 MG TABLET 1 Tablet ORAL DAILY Qty = 30 Bupropion HCl (Bupropion XL) 300 MG TAB.ER.24H 1 Tablet ORAL Every Morning Qty = 30 Tramadol HCl (Ultram) 50 MG TABLET 1 Tablet ORAL EVERY SIX HOURS NEEDED as needed for PAIN Qty = 12 Guaifenesin/Dextromethorphan (Robitussin Cough-Chest Dm Liq) 100 MG-5 MG/5 ML LIQUID 5-10 Milliliters ORAL EVERY SIX HOURS NEEDED as needed for COUGH Qty = 200 Quetiapine Fumarate (Seroquel XR) 300 MG TAB.ER.24H 1 Tablet ORAL Every night Start taking the following new medications: Azithromycin (Azithromycin) 250 MG TABLET 250 Milligram ORAL 0100 Qty = 3 No Refills The following medications have been changed: Old: Butalb/Acetaminophen/Caffeine (Esgic 50-325-40 MG Tablet) 50 MG-325 MG-40 MG TABLET 1 Tablet ORAL THREE TIMES DAILY Qty = 15 New: Butalb/Acetaminophen/Caffeine (Esgic 50-325-40 MG Tablet) 50 MG-325 MG-40 MG TABLET 1 Tablet ORAL Every Morning Qty = 15
[2018-03-05] MEDS ORDERED: SEROQUEL XR300 M1 PO (16:01)
[2018-03-05 21:42] VITALS: BP 128/88
[2018-03-06 06:14] VITALS: BP 128/80
--- NOTE | 2018-03-06 06:20 | PN- Housestaff ---
See Addendum Subjective Follow-up For: Pneumonia Transaminitis Subjective: Pt seen and examined at bedside. States she was in pain overnight, Tramadol dose was switched to 50mg. Has been coughing, nonproductive. Denies fever/chills/ night sweats/chest pain/abdominal pain/LE edema Review of Systems Constitutional: Reports: see HPI. Objective Last 24 Hrs of Vital Signs/I&O Vital Signs Date Time Temp Pulse Resp B/P B/P Pulse O2 O2 Flow FiO2 Mean Ox Delivery Rate 03/06 0614 98.7 79 20 128/80 91 Nasal 1.0L Cannula 03/06 0000 Nasal 1.0L Cannula 03/05 2142 99.2 85 18 128/88 95 03/05 1645 85 Room Air 03/05 1600 97 Nasal 1.0L Cannula 03/05 1348 99.7 96 20 138/70 91 Nasal 1.0L Cannula 03/05 0902 96 130/90 95 Nasal 1.0L Cannula 03/05 0845 95 Nasal 1.0L Cannula 03/05 0800 94 Nasal 2.0L Cannula Intake & Output 03/06 0800 03/06 0000 03/05 1600 Intake Total 120 100 600 Output Total Balance 120 100 600 Intake, IV 20 Intake, Oral 100 100 600 Physical Exam General Appearance: Alert, Oriented X3, Cooperative, Mild Distress Skin: No Rashes Skin Temp/Moisture Exam: Warm/Dry Cardiovascular: Normal S1, Normal S2 Lungs: wheeze LLL, RLL Abdomen: Soft, No Tenderness Neurological: Sensation Intact Extremities: No Edema Current Medications: Current Medications Sig/Wei Start time Last Medication Dose Route Stop Time Status Admin Acetaminophen/ 1 TAB QAM 03/04 0900 AC 03/05 Butalbital/Caffeine PO 1216 Albuterol Sulfate 3 ML EVERY 4 HRS/AWAKE 03/04 1600 AC 03/05 INH 2035 Azithromycin 250 MG 0100 03/06 0100 DC PO Azithromycin 250 MG 0100 03/05 1416 AC 03/06 PO 0112 Azithromycin 500 MG DAILY 03/04 0115 DC 03/04 Sodium Chloride 250 ML IV 0138 Benzonatate 100 MG TID 03/04 1004 AC 03/05 PO 205 Bupropion HCl 300 MG QAM 03/04 0900 AC 03/05 PO 0923 Ceftriaxone Sodium 1,000 MG 0130 03/05 0130 AC 03/06 IV 0111 Clonazepam 1 MG DAILY 03/04 900 AC 03/05 PO 03/11 0859 0924 Diphenhydramine HCl 25 MG Q6P PRN 03/05 1500 AC 03/06 PO 0403 Diphenhydramine HCl 25 MG ONCE ONE 03/05 1000 DC 03/05 PO 03/05 1001 1026 Enoxaparin Sodium 40 MG DAILY 03/04 900 AC 03/05 SC 0924 Guaifenesin 600 MG Q12 03/04 0100 AC 03/05 PO 205 Guaifenesin/Codeine 10 ML Q4P PRN 03/05 1500 AC 03/06 Phosphate PO 0403 Guaifenesin/Codeine 10 ML ONCE ONE 03/05 1000 DC 03/05 Phosphate PO 03/05 1001 1031 Guaifenesin/Codeine 10 ML Q4-6 PRN PRN 03/04 0100 AC 03/05 Phosphate PO 1618 Guaifenesin/ 10 ML Q6P PRN / 1615 AC 03/05 Dextromethorphan PO 1918 Hydromorphone HCl 2 MG ONCE ONE 03/05 1230 DC 03/05 PO 03/05 1231 1302 Ipratropium [place] 2.5 ML EVERY 4 HRS/AWAKE 03/04 1600 AC 03/05 INH 2035 Morphine Sulfate 2 MG Q4P PRN 03/04 0215 DC 03/05 IV 0923 Morphine Sulfate 0 .STK-MED ONE 03/03 2106 CAN .ROUTE Nicotine 14 MG DAILY 03/04 0115 AC 03/05 TOP 0924 Oxycodone HCl 5 MG ONCE ONE 03/05 2000 DC 03/05 PO 03/05 Phenol 2 SPRAY Q2P PRN 03/05 0015 AC 03/05 EXT 1919 Prednisone 40 MG DAILY 03/05 900 AC 03/05 PO 0923 Quetiapine Fumarate 300 MG QPM 03/05 0100 AC 03/05 PO 2051 Sertraline HCl 100 MG DAILY 03/04 900 AC 03/05 PO 0924 Tramadol HCl 50 MG Q6-PRN PRN 03/06 0445 AC PO Tramadol HCl 25 MG Q6-PRN PRN 03/05 1415 DC 03/06 PO 0407 Assessment/Plan Assessment: Patient is a 38-year-old lady with past medical history of hypertension, bipolar disorder, migraine headaches, osteoarthritis, endometriosis, anxiety and depression who presents with cough and shortness of breath starting Thursday. She failed outpatient treatment with doxycycline. On Thursday she did not meet criteria for admission. 03/03/18 temperature was 103.4 took Tylenol without relief, endorses chills palpitations, fever, wheezing, diarrhea, nonbilious vomiting. Chest CT showed diffuse lung parenchymal abnormalities and denser areas of consolidation findings are consistent with a diffuse multilobular pneumonia. Trace bilateral reactive pleural effusions also noted. Problem list: Plan: pneumonia and no acute intra-abdominal pathology -Supplemental oxygen as needed DVT prophylaxis: subcu heparin and Alps Patient is full code Problem List: 1. Pneumonia Pain Ratin Pain Location: Ribs/Abdomen Pain Goal: Pain 7 or less Pain Plan: Tramadol increased to 50mg, avoid NSAIDs and Tylenol 2/2 transaminitis Tomorrow's Labs & Rationales: none reqd
[2018-03-06 15:13] VITALS: BP 120/60
[2018-03-06] MEDS ORDERED: MUCINEX1200 M1 PO (16:27)
[2018-03-06] MEDS ORDERED: GUAIFENESIN AC473 M2 PO ×2 (17:28→17:59)
[2018-03-06] MEDS ORDERED: CEFUROXIME500 MG PO (17:28)
[2018-03-06] MEDS ORDERED: SEROQUEL XR300 M1 PO (18:01)
[2018-03-06] MEDS ORDERED: AZITHROMYCIN250 M1 PO (18:01)
== END 2018-03-06 19:07 | DRG 139 ==
LOC: ERH 18:18 → 2NA 22:41 → ERHI 22:41 → ENRESERV 23:44 → 2NA 03-04 00:28
PROVIDERS: Internal Medicine; Physician Assistant Medical
DX: J18.9 Pneumonia, unspecified organism (principal); R09.02 Hypoxemia; F31.9 Bipolar disorder, unspecified; I10 Essential (primary) hypertension; M19.90 Unspecified osteoarthritis, unspecified site; R74.0 Nonspecific elevation of levels of transaminase and lactic acid dehydrogenase [LDH]; T39.1X5A Adverse effect of 4-Aminophenol derivatives, initial encounter; F17.200 Nicotine dependence, unspecified, uncomplicated
CPT/HCPCS: 2NASP; ERO; 36592; 71046; 74176; 82436; 87040; 87070; 87389; 87449; 87450; 93005; 93010; 96361; 96374; 96375; 96376; G0480; J0131; J0456; J0696; J1200; J1650; J2001; J2765; J2920; J2930; J3101; J7040

== ENCOUNTER 2018-04-12 22:43 | Emergency (ER) | payer OTHER ==
[~2018-04-12] VITALS: Ht 147.3 cm; Wt 75.3 kg
[~2018-04-12 22:43] MED LIST changes: +AZITHROMYCIN250 M1 PO; +CEFUROXIME500 MG PO; +GUAIFENESIN AC473 M2 PO; +MUCINEX1200 M1 PO; +SEROQUEL XR300 M1 PO
[2018-04-12 22:47] VITALS: BP 144/104
--- NOTE | 2018-04-13 00:26 | ED GENERAL ADULT ---
History of Present Illness General Chief Complaint: Suture Removal/Wound Recheck Stated Complaint: ABCESS TO RT BOTTOM Vital Signs & Intake/Output Vital Signs & Intake/Output Vital Signs Date Time Temp Pulse Resp B/P B/P Pulse O2 O2 Flow FiO2 Mean Ox Delivery Rate 04/12 2247 97.9 108 20 144/104 96 Room Air ED Intake and Output 04/13 0000 04/12 1200 Intake Total Output Total Balance Patient 166 lb Weight Weight Reported by Patient Measurement Method Allergies Coded Allergies: ketorolac (Mild, TOOTH PAIN 11/20/16) ibuprofen (GI, HIVES, VOMIT 11/20/16) Reconcile Medications Azithromycin 250 MG TABLET 250 MG PO 0100 ANTIBIOTIC, INFECTION Bupropion HCl (Bupropion XL) 300 MG TAB.ER.24H 1 TAB PO QAM MENTAL HEALTH ( Reported) Butalb/Acetaminophen/Caffeine (Esgic 50-325-40 MG Tablet) 50 MG-325 MG-40 MG TABLET 1 TAB PO QAM HEADACHES Cefuroxime Axetil (Cefuroxime) 500 MG TABLET 1 TAB PO BID PNA Clonazepam 1 MG TABLET 1 TAB PO DAILY MENTAL HEALTH (Reported) Codeine Phosphate/Guaifenesi (Guaifenesin AC Cough Syrup) 10 MG-100 MG/5 ML LIQUID 10 ML PO Q4P PRN COUGH Ergocalciferol (Vitamin D2) (Vitamin D2) 50,000 UNIT CAPSULE 1 CAP PO QW VITAMIN SUPPORT (Reported) Quetiapine Fumarate (Seroquel XR) 300 MG TAB.ER.24H 1 TAB PO QPM MENTAL HEALTH (Reported) Quetiapine Fumarate (Seroquel XR) 300 MG TAB.ER.24H 1 TAB PO QPM ANXIETY Sertraline HCl 100 MG TABLET 1 TAB PO DAILY DEPRESSION (Reported) Tramadol HCl (Ultram) 50 MG TABLET 1 TAB PO Q6P PRN PAIN Triage Note: REQUESTING EVALUATION OF LOWER LEFT PERIANAL ABCESS. : No Patient currently breastfeeds: No Past History Travel History Traveled to [place] past 21 day No Medical History Neurological: vertigo, migraines EENT: TMJ Cardiovascular: hypertension Respiratory: NONE Gastrointestinal: diverticulosis Hepatic: NONE Renal: NONE Musculoskeletal: arthritis SHINGLES Psychiatric: NONE Endocrine: NONE Blood Disorders: NONE Cancer(s): NONE CMS EXPERT/Reproductive: endometriosis History of MRSA: No History of VRE: No History of CDIFF: No Surgical History Surgical History: cholecystectomy, , hysterectomy (COMPLETE) Psychosocial History Who do you live with Family What is your primary language Spanish Tobacco Use: Current Daily Use Daily Tobacco Use Amount/Type: => 5 Cigarettes daily Departure Departure Condition: Stable Referrals: Aleida Shin MD (PCP/Family) Departure Forms: Customer Survey General Discharge Information
== END 2018-04-13 00:27 | disposition admitted as inpatient to this hospital (09) ==
LOC: ERH 22:43
DX: Z48.00 Encounter for change or removal of nonsurgical wound dressing (principal)

== ENCOUNTER 2018-05-05 14:56 | Emergency (ER) | payer OTHER ==
[~2018-05-05] VITALS: Ht 147.3 cm; Wt 73.0 kg
[2018-05-05 15:00] VITALS: BP 146/111
[2018-05-05] MEDS ORDERED: LAMICTAL25 M1 (16:38)
[2018-05-05] MEDS ORDERED: AMBIEN5 M1 (16:39)
[2018-05-05] MEDS ORDERED: ALPRAZOLAM OD0.25 MG (16:39)
--- NOTE | 2018-05-05 16:48 | ED HEADACHE COMPLAINT ---
History of Present Illness General Chief Complaint: Headache Stated Complaint: WALL Source: patient, old records Exam Limitations: no limitations Vital Signs & Intake/Output Vital Signs & Intake/Output Vital Signs Date Time Temp Pulse Resp B/P B/P Pulse O2 O2 Flow FiO2 Mean Ox Delivery Rate 05/05 1500 97.3 109 20 146/111 97 Room Air ED Intake and Output 05/06 0000 09 1200 Intake Total 0 Output Total Balance 0 Intake, Oral 0 Patient 161 lb Weight Weight Reported by Patient Measurement Method Allergies Coded Allergies: ketorolac (Mild, TOOTH PAIN 11/20/16) ibuprofen (GI, HIVES, VOMIT 11/20/16) Reconcile Medications Alprazolam (Alprazolam Odt) (Unknown Strength) TAB.RAPDIS (Unknown Dose) ANXIETY (Reported) Lamotrigine (Lamictal) (Unknown Strength) TABLET (Unknown Dose) ANXIETY ( Reported) Zolpidem Tartrate (Ambien) (Unknown Strength) TABLET (Unknown Dose) SLEEP HELP (Reported) Triage Note: PT TO ED C/O MIGRAINE WITH VERTIGO SINCE LAST NIGHT. H/O THE SAME. Triage Nurses Notes Reviewed? yes Onset: Gradual Duration: day(s): Timing: recent history Quality/Severity: moderate Head Injury Location: frontal : No Patient currently breastfeeds: No HPI: 38YO female presents to ED complaining of "migraine headache" beginning last night. Patient headache has been gradually worsening and is currently severe, prompting ED visit. Patient states headache is bilateral frontal area radiating toward occipital scalp. She has associated nausea with two episodes of vomiting. Patient states this headache feels the same as previous migraines however she reports new dizziness sensation and trouble with balance x 1 week. She also reports perioral paresthesias which are new. No recent head trauma, fevers, visual changes. (Laura QUINTANILLA,Mis Florian) Past History Travel History Traveled to [place] past 21 day No Medical History Any Pertinent Medical History? 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 No (Mis Navarro) Review of Systems Review of Systems Constitutional: Reports: no symptoms. Eyes: Reports: no symptoms. Ears, Nose, Throat, Mouth: Reports: no symptoms. Respiratory: Reports: no symptoms. Cardiovascular: Reports: no symptoms. Gastrointestinal/Abdominal: Reports: see HPI. Genitourinary: Reports: no symptoms. Musculoskeletal: Reports: no symptoms. Skin: Reports: no symptoms. Neurological/Psychological: Reports: see HPI. Hematologic/Endocrine: Reports: no symptoms. Endocrine: Reports: no symptoms. Immunologic/Allergic: Reports: no symptoms. All Other Systems: Reviewed and Negative (Mis Navarro) Physical Exam Physical Exam General Appearance: well developed/nourished, no apparent distress, alert, awake Head: atraumatic, normal appearance Eyes: Bilateral: normal appearance, PERRL, EOMI. Ears, Nose, Throat: normal ENT inspection, hearing grossly normal Neck: normal inspection, supple, full range of motion Respiratory: no respiratory distress Gastrointestinal: soft, non-tender Back: normal inspection, normal range of motion Extremities: normal inspection, normal range of motion Psychiatric: awake, alert, oriented x 3 Cranial Nerves: normal hearing, normal speech, PERRL Coordination/Gait: normal finger to nose, normal gait Motor/Sensory: no motor/sensory deficits Skin: intact, normal color, warm/dry Core Measures Sepsis Present: No Sepsis Focused Exam Completed? No (Mis Navarro) Progress Differential Diagnosis: cav sinus thromb, cluster WALL, encephalitis, IC mass/ tumor, intracranial Hem., meningitis, migraine WALL, sinusitis, subarach. Hem., tension WALL Plan of Care: Orders Procedure Date/time Status CT HEAD WO IV CONTRAST 05/05 1646 Active Current Medications Sig/Wei Start time Last Medication Dose Stop Time Status Admin Diphenhydramine HCl 50 MG ONCE ONE 05/05 1700 UNVr (Benadryl) 05/05 1701 Hydromorphone HCl 1 MG ONCE ONE 05/05 1700 UNVr (Dilaudid) 05/05 1701 Ondansetron HCl 4 MG ONCE ONE 05/05 1700 UNVr (Zofran) 05/[address] scan is stable. Patient states that she usually requires to wanted for relief of her headaches. Narcotics are not typically warranted for headaches however in this patient, she has been refractory to other treatments. She states that Dilaudid makes her itchy and she is usually given Benadryl. She is comfortable receiving Dilaudid even though she may have a mild allergy to this medication. Patient reports significant improvement in her symptoms following IV pain medications. She is now requesting to go home. She is neurologically intact, answers questions readily, no focal neurologic deficit. She will Follow-up with her primary care doctor. She agrees with the plan of care. Diagnostic Imaging: Viewed by Me: CT Scan. Discussed w/RAD: CT Scan. Radiology Impression: PATIENT: VALE SLOAN PRESENT AGE: 38 PATIENT ACCOUNT NO: [id number] : 80 LOCATION: [facility] ORDERING PHYSICIAN: Mis QUINTANILLA SERVICE DATE: 05/05/18 EXAM TYPE: CAT - CT HEAD WO IV CONTRAST EXAMINATION: CT HEAD WITHOUT CONTRAST CLINICAL INFORMATION: Headache. Off balance. COMPARISON: None. TECHNIQUE: Contiguous axial imaging was performed from the skull base to vertex without intravenous administration of contrast. DLP: 614 mGy-cm. FINDINGS: There is no intracranial hemorrhage, large infarction, or mass lesion. There is no extra-axial collection. The ventricles are normal in size and configuration without evidence of hydrocephalus. The visualized paranasal sinuses and mastoid air cells are clear. A mild amount of fluid is present in the left mastoid tip. IMPRESSION: - No acute intracranial abnormality. - Mild fluid in the left mastoid tip. DICTATED BY: Ellis Cat MD DATE/TIME DICTATED:05/05/181714 CHARGE LOADER:EMMETT DATE/TIME TRANSCRIBED:05/05/181714 CONFIDENTIAL, DO NOT COPY WITHOUT APPROPRIATE AUTHORIZATION. <Electronically signed in Other Vendor System> SIGNED BY: Ellis Cat MD 05/05/181724 (Laura QUINTANILLA,Mis Florian) Departure Departure Disposition: HOME OR SELF CARE Condition: Stable Clinical Impression Primary Impression: Headache Qualifiers: Headache type: unspecified Headache chronicity pattern: acute headache Intractability: not intractable Qualified Code: R51 - Headache Secondary Impressions: Nausea & vomiting Qualifiers: Vomiting type: unspecified Vomiting Intractability: non-intractable Qualified Code: R11.2 - Nausea with vomiting, unspecified Referrals: Aleida Shin MD (PCP/Family) Additional Instructions: Follow up with your primary care doctor. Return with worsening symptoms or concerns. Please note that there might be incidental findings in your evaluation that are unrelated to the current emergency department visit. Please notify your primary care doctor about this emergency department visit in order to obtain and review all of the testing performed so that these incidental findings can be monitored as needed. If you had an x-ray performed, please understand that some fractures may not be seen on the initial set of x-rays. If your symptoms persist you might need a repeat set of x-rays to check for such a fracture. If you had a laceration evaluated, please understand that foreign bodies such as glass or wood may not be visible to the naked eye or on plain x-rays. If the wound becomes red, swollen, increasingly more painful or if there is any drainage from the wound, please have it reevaluated by a physician for the possibility of a retained foreign body. If you're unable to follow up as outlined in the discharge instructions please return to the emergency department. Thank you for choosing the [facility] Emergency Department for your care. It was a pleasure to serve you today. Departure Forms: Customer Survey General Discharge Information (Laura QUINTANILLA,Mis Florian) PA/REHABILITATION CONSULTANT Co-Sign Statement Statement: ED Attending supervision documentation- I saw and evaluated the patient. I have also reviewed all the pertinent lab results and diagnostic results. I agree with the findings and the plan of care as documented in the PA's/REHABILITATION CONSULTANT's documentation. x I have reviewed the ED Record and agree with the PA's/REHABILITATION CONSULTANT's documentation. [] Additions or exceptions (if any) to the PAs/REHABILITATION CONSULTANT's note and plan are summarized below: [] (Blair ALEXANDER,Deonte)
--- NOTE | 2018-05-05 17:25 | CT SCAN REPORT ---
EXAMINATION: CT HEAD WITHOUT CONTRAST CLINICAL INFORMATION: Headache. Off balance. COMPARISON: None. TECHNIQUE: Contiguous axial imaging was performed from the skull base to vertex without intravenous administration of contrast. DLP: 614 mGy-cm. FINDINGS: There is no intracranial hemorrhage, large infarction, or mass lesion. There is no extra-axial collection. The ventricles are normal in size and configuration without evidence of hydrocephalus. The visualized paranasal sinuses and mastoid air cells are clear. A mild amount of fluid is present in the left mastoid tip. IMPRESSION: - No acute intracranial abnormality. - Mild fluid in the left mastoid tip.
== END 2018-05-05 18:59 ==
LOC: ERH 14:56
DX: R51 Headache (principal); R11.2 Nausea with vomiting, unspecified
CPT/HCPCS: 96374; 96375; 96376; J1200; J2405